=== PATIENT | male | born 1950 | race Caucasian/White ===

== ENCOUNTER 2019-04-06 10:19 | Inpatient (IN) | payer OTHER, SELFPAY ==
[2019-04-06] VITALS (9 sets, daily range): BP systolic 102–146; BP diastolic 71–94; PULSE 77–132; RESP 16–20; TEMP 36.2–37; O2SAT 94–99; BMI 28.9
--- NOTE | ~2019-04-06 | XR_ITS ---
. EXAMINATION: XR pelvis 1-2V DATE: 04/06/2019 11:46 INDICATION: Pelvic pain. Fall. TECHNIQUE: An anteroposterior view of the pelvis was obtained. COMPARISON: Pelvis radiograph 12/26/2014 FINDINGS: Bone alignment is normal. No fracture. There is moderate right hip osteoarthritis and advan loni left hip osteoarthritis. There is mild lower lumbar spondylosis. IMPRESSION: 1. Moderate right hip osteoarthritis and advanced left hip osteoarthritis. Reviewed, dictated and finalized at location A. TYING MACHINE KNOTTER
--- NOTE | ~2019-04-06 | US_ITS ---
EXAMINATION: US carotid duplex BI DATE: 04/08/2019 13:01 INDICATION: Carotid stenosis. Status post fall. TECHNIQUE: Grayscale, color Doppler, and pulsed Doppler images of the cervical carotid arteries were obtained. The degree of vessel stenosis is placed in one of the following categories: normal, <50%, 5 0-69%, >=70% but less than near-occlusion, near-occlusion, or total occlusion. Note that percent sten osis relative to normal distal artery lumen diameter is indirectly measured from velocity measurement s as described by Ishaan, et al. Radiology 2003; 229:340-346. Notes: Normal: Peak systolic velocity <125 centimeters/sec and no plaque <50%. Peak systolic velocity <125 ( EDV <40; ICA/CCA PSV ratio <2.0; used these factors only a tandem lesions or low cardiac output or co ntralateral disease) 50-69 %: PSV 125-230 (EDV 40-100; ratio 2-4) >= 70% but less than near occlusion: PSV greater than 230 (EDV > 100; ratio> 4.0) Near Occlusion: PSV that is variable; markedly narrowed lumen Occlusion: Absent flow on color/spectral Doppler and no lumen on michel scale. COMPARISON: Ultrasound dated 07/12/2017 FINDINGS: RIGHT: The right common carotid artery (CCA) peak systolic velocity (PSV) is 83 cm/s. The right internal car otid artery (ICA) PSV is 151 cm/s. The right ICA end-diastolic velocity (EDV) is 35 cm/s. The right I CA/CCA PSV ratio is 1.8. The external carotid artery (ECA) PSV is 173 cm/s. There is antegrade flow i n the right vertebral artery. LEFT: The left CCA PSV is 126 cm/s. The left ICA PSV is 106 cm/s. The left ICA EDV is 18 cm/s. The left ICA /CCA PSV ratio is 0.8. The ECA PSV is 272 cm/s. There is antegrade flow in the left vertebral artery . IMPRESSION: 1. 50-69% stenosis in the right internal carotid artery by sonographic criteria. 2. Less than 50% stenosis in the left internal carotid artery by sonographic criteria. Reviewed, dictated and finalized at location B. CINAL CHEMIST IMPRESSION: 1. 50-69% stenosis in the right internal carotid artery by sonographic criteria . 2. Less than 50% stenosis in the left internal carotid artery by sonographic cr iteria.
--- NOTE | ~2019-04-06 | CT_ITS ---
EXAMINATION: CT lumbar spine wo con DATE: 04/06/2019 11:36 INDICATION: Low back pain. TECHNIQUE: Computed tomography (CT) of the lumbar spine was performed without intravenous contrast. A utomated exposure control and iterative reconstruction technique were employed. The dose-length produ ct was 1238.32 mGy-cm. COMPARISON: Lumbar spine CT 12/28/2014 FINDINGS: The bladder is severely distended. There is an old healed fracture right 11th rib. There is moderate right hip osteoarthritis and advanced left hip osteoarthritis. There is 11 degrees levoscol iosis of lumbar spine. L5 is a transitional segment. Intervertebral disc heights are normal. The foll owing disc levels are specifically discussed: L1-L2: The disc is bulging. There is moderate bilateral facet joint osteoarthritis. There is mild latesha ateral neural foraminal stenosis. There is mild central canal stenosis. L2-L3: The disc is bulging. There is mild right and moderate left facet joint osteoarthritis. There i s mild bilateral neural foraminal stenosis. There is mild central canal stenosis. L3-L4: The disc is bulging. There is mild bilateral facet joint osteoarthritis. There is moderate latesha ateral neural foraminal stenosis. There is mild central canal stenosis. L4-L5: The disc is bulging. There is severe bilateral facet joint osteoarthritis. There is mild bilat eral neural foraminal stenosis. There is mild central canal stenosis. L5-S1: The disc does not extend beyond the endplate margin. There is no facet joint hypertrophy. Ther e is no neural foraminal stenosis. There is no central canal stenosis. IMPRESSION: 1. No fracture. 2. Moderate lumbar spondylosis. 3. Lumbar levoscoliosis. Reviewed, dictated and finalized at location A. T FARMER
--- NOTE | ~2019-04-06 | CT_ITS ---
EXAMINATION: CT brain wo con DATE: 04/06/2019 11:35 INDICATION: Head injury. TECHNIQUE: Computed tomography (CT) of the head was performed without intravenous contrast. The mA wa s adjusted according to patient size. Iterative reconstruction technique was employed. The dose-lengt h product was 605.33 mGy-cm. COMPARISON: Head CT 11/07/2017 FINDINGS: There is diffuse brain volume loss. There is no intracranial hemorrhage, acute infarction, or abnormal intracranial mass lesion. The ventricles are normal in size. The orbits are normal. There is mild mucosal thickening in the ethmoid sinuses. The mastoid air cells are normal. IMPRESSION: 1. Normal aging brain. Reviewed, dictated and finalized at location A. CTOR LEARNING SERVICES IMPRESSION: 1. Normal aging brain.
--- NOTE | ~2019-04-06 | XR_ITS ---
EXAMINATION: XR knee LT 3V DATE: 04/06/2019 11:45 INDICATION: Left knee pain. Fall. TECHNIQUE: 3 views of left knee were obtained. COMPARISON: Left knee radiographs 10/27/2016 FINDINGS: The knee is flexed on all views. No fracture. Osteopenia is noted. There is mild tricompart mental osteoarthritis. There is a large knee joint effusion. IMPRESSION: 1. Large left knee joint effusion. No fracture identified. 2. Mild left knee osteoarthritis. Reviewed, dictated and finalized at location A. ER MACHINE
--- NOTE | ~2019-04-06 | XR_ITS ---
EXAMINATION: XR knee RT 3V DATE: 04/06/2019 11:45 INDICATION: Right knee pain and swelling. Fall. TECHNIQUE: 3 views of right knee were obtained. COMPARISON: Right knee radiographs 10/27/2016 FINDINGS: Bone alignment is normal. No fracture. There is moderate osteoarthritis of medial compartme nt and mild osteoarthritis of lateral and patellofemoral compartments. No knee joint effusion. IMPRESSION: 1. Moderate right knee osteoarthritis. Reviewed, dictated and finalized at location A. CELL SYSTEMS ENGINEER
--- NOTE | ~2019-04-06 | CT_ITS ---
EXAMINATION: CT cervical spine wo con DATE: 04/06/2019 11:35 INDICATION: Head injury. TECHNIQUE: Computed tomography (CT) of the cervical spine was performed without intravenous contrast. Automated exposure control and iterative reconstruction technique were employed. The dose-length pro duct was 461.97 mGy-cm. COMPARISON: Cervical spine CT 07/12/2017 FINDINGS: There is mild emphysema. There is 8 degrees levocurvature of cervical spine. Vertebral body heights are normal. There is severely decreased disc height at C4-C5 and mildly decreased disc heigh t at C5-C6. The following disc levels are specifically discussed: C2-C3: There is mild bilateral uncovertebral joint osteoarthritis. There is mild bilateral facet join t osteoarthritis. There is no neural foraminal stenosis. There is no central canal stenosis. C3-C4: There is mild bilateral uncovertebral joint osteoarthritis. There is mild bilateral facet join t osteoarthritis. There is no neural foraminal stenosis. There is no central canal stenosis. C4-C5: There is severe right and mild left uncovertebral joint osteoarthritis. There is mild bilatera l facet joint osteoarthritis. There is mild right neural foraminal stenosis. There is mild central ca nal stenosis. C5-C6: There is severe right and mild left uncovertebral joint osteoarthritis. There is mild right fa cet joint osteoarthritis. There is mild right neural foraminal stenosis. There is no central canal st enosis. C6-C7: There is no uncovertebral joint osteoarthritis. There is mild left facet joint osteoarthritis. There is no neural foraminal stenosis. There is no central canal stenosis. C7-T1: There is no uncovertebral joint osteoarthritis. There is mild right and moderate left facet jovanni int osteoarthritis. There is no neural foraminal stenosis. There is no central canal stenosis. IMPRESSION: 1. No fracture. 2. Severe cervical spondylosis. Reviewed, dictated and finalized at location A. WAY RADIO TECHNICIAN
--- NOTE | ~2019-04-06 | XR_ITS ---
EXAMINATION: XR chest 2V DATE: 04/06/2019 13:03 INDICATION: Cough. Weakness. TECHNIQUE: Frontal and lateral views of the chest were obtained. COMPARISON: Chest 2 views 11/15/2017 FINDINGS: There is no pneumonia, pleural effusion, or pneumothorax. Cardiomegaly is noted. IMPRESSION: 1. Cardiomegaly. Reviewed, dictated and finalized at location A. EM ARCHIVE ANALYST IMPRESSION: 1. Cardiomegaly.
--- NOTE | 2019-04-06 11:07 | ECG_ITS ---
Measurements Intervals [place] Rate: 109 P: KS: 0 QRS: -19 QRSD: 105 T: 90 QT: 356 QTc: 480 Interpretive Statements ATRIAL FIBRILLATION WITH RAPID VENTRICULAR RESPONSE VENTRICULAR PREMATURE COMPLEXES DELAYED PRECORDIAL R/S TRANSITION BORDERLINE ST-T WAVE ABNORMALITY- LATERAL LEADS BASELINE ARTIFACT- II, III, AVR, AVL, AVF ABNORMAL ECG Electronically Signed On 04-06-2019 12:06:15 CAKE FROSTER by Madhav Lanier D.O.
--- NOTE | 2019-04-06 11:36 | ED.FALL ---
HPI - Fall General Chief Complaint: Fall Stated Complaint: increased weakness/ lethargy Time Seen by Provider: 04/06/19 11:06 Source: patient and family Mode of arrival: ambulatory Limitations: no limitations History of Present Illness HPI Narrative: Patient is a 68-year-old male who presents per private vehicle for evaluation of injuries after falling out of his bed in the early hours of the morning was laying on the ground could not get up family was finally able to get him up and bring some into the emergency department complaining of hand pain knee pain low back pain and head pain from the fall also has been having generalized weakness over the recent past with similar occurrences in the past. Patient denies any fever chills nausea or vomiting or URI symptoms . On arrival patient in the room in no distress. Symptoms are worse with activity and movement. Patient denies syncope or loss of consciousness Related Data Home Medications Medication Instructions Recorded Confirmed apixaban 5 mg tablet 5 mg PO BID 03/13/19 diltiazem HCl 240 mg capsule,24 240 mg PO DAILY 03/13/19 hr,extended release duloxetine 30 mg capsule,delayed 30 mg PO DAILY 03/13/19 release magnesium oxide 400 mg PO DAILY 03/13/19 potassium chloride 20 mEq 20 meq PO BID 03/13/19 tablet,extended release(part/cryst) Allergies Allergy/AdvReac Type Severity Reaction Status Date / Time No Known Allergies Allergy Verified 04/06/19 10:34 Review of Systems Review of Systems: All systems reviewed & are unremarkable except as noted in HPI and below PMFSH Past Medical History Medical History Essential (primary) hypertension History of tobacco abuse Overweight (08/21/15) Paroxysmal atrial fibrillation Family History Family History Mother Family history of malignant neoplasm Patient's mother is Father Patient's father is Social History Social History Smoking status: Current every day smoker Alcohol intake: current Gender identity (if verbalized by the patient): Male Exam Narrative: Exam Narrative: GENERAL: Chronically ill l-appearing, well-nourished, and in no acute distress. HEAD: Normocephalic, atraumatic. EYES: PERRLA and EOMI. ENT: Nares clear, no rhinorrhea or epistaxis. Mucous membranes moist. Oropharynx without tonsillar hypertrophy exudate or other lesions. NECK: Supple. No adenopathy or masses. No carotid bruits or JVD CHEST: Clear to auscultation. No respiratory distress. No wheezes rales or rhonchi HEART: Irregularly irregular rate and rhythm. No murmur heard. Normal peripheral pulses. ABDOMEN: Soft, mild tenderness of the abdomen, nondistended EXTREMITIES: Normal range of motion. No edema. Tenderness of the cervical thoracic and lumbar spine. Pelvis palpated and tenderness of the left hip., Tenderness of the bilateral hands no deformity. Tenderness of the bilateral anterior knees with abrasions noted SKIN: Warm, dry, no rash. NEURO: No focal deficits. Alert and oriented x3. Cranial nerves II through XII grossly intact. Neurovascularly intact PSYCH: Normal mood and affect. Course Course Emergency Course: Patient in the room at this time aware of case findings treatment plan and diagnosis agreeing to come into the hospital for his atrial fibrillation and generalized weakness Consultations Consultation #1: Discussed case with hospitalist who is agreed to accept the patient Vital Signs Vital signs: Vital Signs Temperature 97.2 F L 04/06/19 10:26 Pulse Rate 127 H 04/06/19 10:26 Respiratory Rate 20 04/06/19 10:26 Blood Pressure 112/94 H 04/06/19 10:26 Pulse Oximetry 94 04/06/19 10:26 Temperature 97.2 F L 04/06/19 10:26 Pulse Rate 132 H 04/06/19 12:49 Respiratory Rate 16
[2019-04-06 12:24] LABS: Basophils Percent Auto 0.2 % (0.2-1.2); Hematocrit 44.6 % (42.0-52.0); Hemoglobin 14.9 g/dL (14.0-18.0); Immature Granulocyte Absolute 0.13 K/mm3 (0.00-0.031); Immature Granulocyte Percent A 0.7 % (0-0.5); Lymphocytes Absolute Auto 0.87 K/mm3 (0.9-3.2); Lymphocytes Percent Auto 4.6 % (18.3-44.2); Mean Corpuscular HGB Conc 33.4 g/dl (32-36); Mean Corpuscular Hemoglobin 28.5 pg (26-34); Mean Corpuscular Volume 85.4 fl (80-100); Mean Platelet Volume 10.4 fl (7.4-10.4); Monocytes Absolute Auto 1.5 K/mm3 (0.1-0.6); Monocytes Percent Auto 8.1 % (2.6-8.5); Neutrophils Absolute Auto 16.4 K/mm3 (1.3-6.7); Neutrophils Percent Auto 86.4 % (45.5-73.1); Platelet Count Result 347 k/mm3 (150-375); Red Blood Count 5.22 M/mm3 (4.6-6.20); Red Cell Distribution Width 13.4 % (11.5-14.5)
[2019-04-06 12:36] LABS: Alanine Aminotransferase 29 U/L (4-50); Albumin Level 3.9 g/dL (3.5-5.1); Alkaline Phosphatase 193 U/L (38-126); Aspartate Amino Transferase 52 U/L (17-59); Bilirubin,Total 2.3 mg/dL (0.2-1.3); Blood Urea Nitrogen 17 mg/dL (9-20); Calcium 9.5 mg/dL (8.4-10.2); Carbon Dioxide 25 mmol/L (22-30); Chloride 94 mmol/L (98-107); Creatine Kinase 349 U/L (55-170); Estimated CRCL calculation 90 ml/min; Estimated Glomerular Filt Rate > 60; Glucose 149 mg/dL (75-110); Potassium 3.6 mmol/L (3.4-5.0); Sodium 135 mmol/L (137-145)
[2019-04-06 12:46] LABS: INR 1.2; Prothrombin Time 15.3 Seconds (11.1-14.7)
[2019-04-06 12:48] LABS: NT Pro B Type Natriuretic Pept 5440 PG/ML (5-100); Troponin I 0.013 ng/mL (0.000-0.034)
[2019-04-06] MEDS: MORPHINE SULFATE 4 MG/ML INJ IV PUSH (13:27)
[2019-04-06 14:35] LABS: Add Urine Microscopic? YES; Appearance Urine Cloudy (Clear); Bacteria Urine Trace /hpf; Bilirubin Urine Negative (Negative); Blood Urine 2+ (Negative); Color Urine Amber (Yellow); Glucose Urine UA Negative (Negative); Ketones Urine Negative (Negative); Leukocyte Esterase Ur 3+ LEU/UL (Negative); Nitrate Urine Negative (Negative); Protein Urine 2+ mg/dL (Negative); RBC Urine 51-75 /hpf (0-2); Specific Grav Ur 1.015 (1.001-1.035); Squamous Epithelial Cell Urine Rare /hpf (Few); WBC Urine >75 /hpf
--- NOTE | 2019-04-06 17:17 | ADMGEN ---
This patient, Sonny Salas, was admitted to IMU Room 212-01 at 1445. Patient/family oriented to hospital policies and general routines including ID bracelet, bed and alarms, visiting hours, pain management, procedures, bathroom and other care routines, personal items, smoking policy, room service/diet, and visiting hours. Valuables list has been completed. Information on how to activate the Rapid Response Team has been discussed. Patient/Family are encouraged to report perceived risks to care and to ask questions if they do not understand what they are told or what they should do.
--- NOTE | 2019-04-06 17:29 | PM.IMHP ---
H&P: HPI History of Present Illness Chief complaint: a fib with rvr Narrative: Sonny Salas is a 68 year old male who came to the hospital via private vehicle. His Kelly drove him here. The patient slid out of bed as 1 his said. However the patient said that he had stood up to get out of bed and slipped and fell on the floor. The stated this is not the 1st time this has occurred. The patient has some neuropathy to his feet and severe osteoarthritis. He chronically has avascular necrosis to his hip. However no surgeon will be able to perform surgery on him because he is too high wrist. The patient has been very weak and having difficulty moving around. His stated that he was also getting confused. The patient has abrasions to his elbows and his legs. He was not able to get up off the floor. Finally another family member came over to help assist with getting the patient off the floor. The states that he has been falling frequently and having frequent UTIs. He takes Macrobid routinely. Patient was found to be in AFib RVR. On a Cardizem drip. His heart rate is now in the lower 100s. Date of service 04/06/2019 influenza screening was negative. Review of Systems Review of Systems: Narrative: No fever no chills but he has body aches. He is complaining of having discomfort to his legs. Severe neuropathy All systems reviewed & are unremarkable except as noted in HPI and below Constitutional: Constitutional: Reports as per HPI and Reports no additional constitutional complaints Eyes: Eyes: Reports as per HPI and Reports no additional eye complaints ENT: Reports system reviewed and no additional complaints, except as documented and Reports Normal hearing present Cardiovascular: Cardiovascular: Reports no additional cardiovascular complaints Respiratory: Respiratory: Reports no additional respiratory complaints and Reports no additional respiratory complaints Gastrointestinal: Gastrointestinal: Reports as per HPI and Reports no additional gastrointestinal complaints Musculoskeletal: Musculoskeletal: Reports no additional musculoskeletal complaints Comments: Severe osteoarthritis to his hips knees and feet. Severe pain to left knee Integumentary/Breasts: Skin/Breast: Reports system reviewed and no additional complaints, except as docu and Reports as per HPI Neurologic: Reports system reviewed and no additional complaints, except as documented, Reports as per HPI and Reports Normal hearing present Psychiatric: Psychiatric: Reports no additional psychiatric complaints and Reports as per HPI Endocrine: Endocrine: Reports no additional endocrine complaints Hematologic/Lymphatic: Hematologic/Lymphatic: Reports no additional hematologic/lymphatic complaints Allergic/Immunologic: Allergic/Immunologic: Reports no additional allergic/immunologic complaints [facility] Past Medical History Medical History (Updated 04/06/19 @ 18:14 by Shelby Rush NP) CVD (cardiovascular disease) Five cardiac stents Essential (primary) hypertension History of multiple cerebrovascular accidents (CVAs) History of tobacco abuse Kidney stones Liver abscess Drained Overweight (08/21/15) Paroxysmal atrial fibrillation PVD (peripheral vascular disease) Surgical History Surgical History (Updated 04/06/19 @ 17:46 by Shelby Rush NP) H/O cataract extraction H/O heart artery stent 5 stents History of appendectomy Hx of cholecystectomy Family History Family History Mother Family history of malignant neoplasm Patient's mother is Father Patient's father is Social History Social History (Updated 04/06/19 @ 18:00 by Shelby Rush NP) Social History: This patient lives with his James who he appoints as his durable power contract attorney. He has no biological children but he is 2 to stepchildren. 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
[2019-04-06] MEDS: POTASSIUM CHLORIDE 20 MEQ TABLET.ER PO (19:03)
[2019-04-06] MEDS: METOPROLOL TARTRATE 25 MG TABLET PO (19:03)
[2019-04-06] MEDS: MAGNESIUM OXIDE 400 MG TABLET PO (19:03)
[2019-04-06] MEDS: FUROSEMIDE 80 MG TABLET PO (19:03)
[2019-04-06] MEDS: DULOXETINE HCL 30 MG CAPSULE.DR PO (19:04)
[2019-04-06] MEDS: ATORVASTATIN 40 MG TABLET PO (19:04)
[2019-04-06] MEDS: ASPIRIN 81 MG ENTERIC TABLET PO (19:04)
[2019-04-06] MEDS: APIXABAN 5 MG TABLET PO (19:04)
[2019-04-06] MEDS: GABAPENTIN 100 MG CAPSULE PO (19:04)
[2019-04-07] VITALS (13 sets, daily range): BP systolic 136–154; BP diastolic 70–83; PULSE 74–111; RESP 16–20; TEMP 36.7–37.1; O2SAT 93–97
[2019-04-07 05:13] LABS: Basophils Percent Auto 0.2 % (0.2-1.2); Eosinophils Absolute Auto 0.1 K/mm3 (0-0.3); Eosinophils Percent Auto 0.5 % (0-4.4); Hematocrit 41.7 % (42.0-52.0); Hemoglobin 13.7 g/dL (14.0-18.0); Immature Granulocyte Absolute 0.05 K/mm3 (0.00-0.031); Immature Granulocyte Percent A 0.4 % (0-0.5); Lymphocytes Absolute Auto 1.33 K/mm3 (0.9-3.2); Lymphocytes Percent Auto 10.5 % (18.3-44.2); Mean Corpuscular HGB Conc 32.9 g/dl (32-36); Mean Corpuscular Hemoglobin 28.6 pg (26-34); Mean Corpuscular Volume 87.1 fl (80-100); Mean Platelet Volume 10.4 fl (7.4-10.4); Monocytes Absolute Auto 1.4 K/mm3 (0.1-0.6); Monocytes Percent Auto 10.7 % (2.6-8.5); Neutrophils Absolute Auto 9.8 K/mm3 (1.3-6.7); Neutrophils Percent Auto 77.7 % (45.5-73.1); Platelet Count Result 327 k/mm3 (150-375); Red Blood Count 4.79 M/mm3 (4.6-6.20); Red Cell Distribution Width 13.5 % (11.5-14.5); White Blood Count 12.6 K/mm3 (4.5-10.0)
[2019-04-07 05:34] LABS: Alanine Aminotransferase 30 U/L (4-50); Albumin Level 3.6 g/dL (3.5-5.1); Alkaline Phosphatase 163 U/L (38-126); Aspartate Amino Transferase 52 U/L (17-59); Bilirubin,Total 1.2 mg/dL (0.2-1.3); Blood Urea Nitrogen 16 mg/dL (9-20); Carbon Dioxide 26 mmol/L (22-30); Chloride 97 mmol/L (98-107); Estimated CRCL calculation 79 ml/min; Estimated Glomerular Filt Rate > 60; Glucose 112 mg/dL (75-110); Magnesium 2.1 mg/dL (1.6-2.3); Potassium 3.6 mmol/L (3.4-5.0); Sodium 137 mmol/L (137-145); Uric Acid 7.2 mg/dL (3.5-8.5)
[2019-04-07 06:30] LABS: Thyroid Stimulating Hormone Reflex 0.586 uIU/mL (0.465-4.68)
[2019-04-07] MEDS: DULOXETINE HCL 30 MG CAPSULE.DR PO (12:16)
[2019-04-07] MEDS: ASPIRIN 81 MG ENTERIC TABLET PO (12:16)
[2019-04-07] MEDS: APIXABAN 5 MG TABLET PO ×2 (12:16→18:04)
[2019-04-07] MEDS: GABAPENTIN 100 MG CAPSULE PO ×2 (12:16→18:04)
[2019-04-07] MEDS: NITROFURANTOIN MACROCRYSTALS 50 MG CAP PO (12:16)
[2019-04-07] MEDS: FUROSEMIDE 80 MG TABLET PO (12:17)
[2019-04-07] MEDS: ATORVASTATIN 40 MG TABLET PO (12:17)
[2019-04-07] MEDS: MAGNESIUM OXIDE 400 MG TABLET PO (12:17)
[2019-04-07] MEDS: METOPROLOL TARTRATE 25 MG TABLET PO ×2 (12:17→18:04)
[2019-04-07] MEDS: FAMOTIDINE 20 MG/2 ML VIAL IV PUSH ×2 (12:18→20:28)
[2019-04-07] MEDS: POTASSIUM CHLORIDE 20 MEQ TABLET.ER PO ×2 (12:18→18:04)
[2019-04-07] MEDS: TOLNAFTATE 1% POWDER 45 GM BTL 1 APPLIC TOPICAL ×2 (12:18→20:32)
--- NOTE | 2019-04-07 16:20 | PM.IMPN ---
Subjective Date/time seen: 04/07/19 16:20 Interval history: Josue is a 68 year old male who came to the hospital via private vehicle. His Kelly drove him here. The patient slid out of bed as 1 his said. However the patient said that he had stood up to get out of bed and slipped and fell on the floor. Pt has bilateral knee effusions left worse than right. Pt has had neuropathy, finds it difficult to walk. And falls easily needs rehab to help him walk. Review of Systems Review of Systems: All systems reviewed & are unremarkable except as noted in HPI and below Integumentary/Breasts: Comments: imbalance , swollen knees, numbness in feet Exam Const: General: cooperative, healthy appearing, comfortable, no acute distress, well developed, alert, awake and Physically active Nutritional Appearance: average body habitus, well nourished and overweight Orientation/consciousness: oriented to person, oriented to place, oriented to time and patient oriented x3 Limitations: no limitations Chest: Chest palpation & inspection: normal inspection of the chest Resp: Effort & Inspection: normal respiratory effort Auscultation: clear to auscultation bilaterally Percussion: percussion normal Cardio: Palpation: normal PMI Rate: regular rate Rhythm: regular rhythm Heart sounds: S1 normal heart sound present and S2 normal heart sound present Peripheral pulses: Peripheral pulses 2+ throughout Other: The patient goes in and out of atrial fibrillation. Weak pedal pulses bilaterally. Back/Spine/Pelvis: Back: no CVA tenderness Cervical Spine: cervical ROM normal Thoracic/Lumbar Spine: thoracic and lumbar spine normal to inspection Pelvis: no pain with anterior-posterior compression Skin: General skin exam: normal color Lesions: no lesions Rashes: no rashes Trauma: no lacerations or abrasions Wounds: no wounds Hair: normal Nails: normal Neuro: General: oriented to person, oriented to place, oriented to time and patient oriented x3 Cranial nerves: Yes Equal, round and reactive pupils present and Yes Normal hearing present Cognition (Neuro): normal cognition Speech: normal speech Gait exam (Neuro): Normal gait present Motor exam (neuro): Other motor observations present (Generalized weakness) Sensory Exam: other (Very sensitive to lower extremities. He has neuropathy) Extrem: General: normal to inspection, full ROM and other (Weak pedal pulses bilaterally. Multiple scratches to his lower extremity.) Right upper extremity: normal to inspection and shoulder/upper arm Left upper extremity: normal to inspection and shoulder/upper arm Other: Large swollen knees arthritc with effusion Numbness of feet Toe nails and feet unkempt Psych: Appearance: grossly normal Mental Status: mental status grossly normal Speech and movement: Normal speech and movement present Affect: normal affect Attitude: cooperative Thought process: Normal thought process present Insight: Fair insight present (Psych) Judgement: Fair judgement present (Psych) Other: Patient gets confused at times but is answer questions for me at this time. Objective Data Vital Signs Vital Signs: Vital Signs - 24 hr 04/06/19 19:03 04/06/19 19:35 04/06/19 20:00 Temperature 36.6 C Pulse Rate 106 H 98 98 Respiratory Rate 18 Blood Pressure 146/71 H Pulse Oximetry 98 04/06/19 22:00 04/06/19 23:29 04/07/19 00:00 Temperature 37.0 C Pulse Rate 89 77 99 Respiratory Rate 20 Blood Pressure 140/77 Pulse Oximetry 94 04/07/19 02:00 04/07/19 04:00 04/07/19 06:00 Temperature 36.7 C Pulse Rate 98 93 106 H Respiratory Rate 18 Blood Pressure 150/83 H Pulse Oximetry 97 04/07/19 08:00 04/07/19 10:00 04/07/19 12:00 Temperature 36.9 C Pulse Rate 111 H 92 91 Respiratory Rate 20 Blood Pressure 154/79 H Pulse Oximetry 97 04/07/19 12:17 Temperature Pulse Rate 95 Respiratory Rate Blood Pressure Pulse Oximetry Intake/Outpu
--- NOTE | 2019-04-07 19:48 | PC.NURSE ---
report given to Cj ARMENTA, pt transferred with belongings to [facility] at 1944.
[2019-04-08] VITALS (11 sets, daily range): BP systolic 124–132; BP diastolic 53–62; PULSE 68–80; RESP 18–20; TEMP 36.6–37.3; O2SAT 96–98
[2019-04-08 06:38] LABS: Hematocrit 39.5 % (42.0-52.0); Hemoglobin 12.8 g/dL (14.0-18.0); Mean Corpuscular HGB Conc 32.4 g/dl (32-36); Mean Corpuscular Hemoglobin 28.6 pg (26-34); Mean Corpuscular Volume 88.2 fl (80-100); Mean Platelet Volume 10.5 fl (7.4-10.4); Platelet Count Result 316 k/mm3 (150-375); Red Blood Count 4.48 M/mm3 (4.6-6.20); Red Cell Distribution Width 13.5 % (11.5-14.5); White Blood Count 9.8 K/mm3 (4.5-10.0)
[2019-04-08 06:48] LABS: Blood Urea Nitrogen 20 mg/dL (9-20); Calcium 8.9 mg/dL (8.4-10.2); Carbon Dioxide 26 mmol/L (22-30); Chloride 96 mmol/L (98-107); Estimated CRCL calculation 64 ml/min; Estimated Glomerular Filt Rate > 60; Glucose 110 mg/dL (75-110); Potassium 3.9 mmol/L (3.4-5.0); Sodium 135 mmol/L (137-145)
[2019-04-08] MEDS: APIXABAN 5 MG TABLET PO ×2 (09:07→16:59)
[2019-04-08] MEDS: ATORVASTATIN 40 MG TABLET PO (09:07)
[2019-04-08] MEDS: ASPIRIN 81 MG ENTERIC TABLET PO (09:07)
[2019-04-08] MEDS: GABAPENTIN 100 MG CAPSULE PO ×3 (09:08→16:58)
[2019-04-08] MEDS: METOPROLOL TARTRATE 25 MG TABLET PO ×2 (09:08→16:58)
[2019-04-08] MEDS: NITROFURANTOIN MACROCRYSTALS 50 MG CAP PO (09:08)
[2019-04-08] MEDS: DULOXETINE HCL 30 MG CAPSULE.DR PO (09:08)
[2019-04-08] MEDS: FUROSEMIDE 80 MG TABLET PO (09:08)
[2019-04-08] MEDS: MAGNESIUM OXIDE 400 MG TABLET PO (09:08)
[2019-04-08] MEDS: FAMOTIDINE 20 MG/2 ML VIAL IV PUSH ×2 (09:08→20:16)
[2019-04-08] MEDS: POTASSIUM CHLORIDE 20 MEQ TABLET.ER PO ×2 (09:09→16:59)
[2019-04-08] MEDS: TOLNAFTATE 1% POWDER 45 GM BTL 1 APPLIC TOPICAL ×2 (09:13→20:18)
--- NOTE | 2019-04-08 15:08 | PM.IMPN ---
Progress Note: A&P Assessment and Plan (1) Atrial fibrillation with rapid ventricular response: Code(s): I48.91 - Unspecified atrial fibrillation Status: Acute Assessment and Plan: Patient had not had his home medications yet this morning. Will resume his metoprolol and his Cardizem orally he is also on apixaban. We can take him off of the Cardizem drip once we start him on oral medications. (2) UTI (urinary tract infection): Code(s): N39.0 - Urinary tract infection, site not specified Status: Acute Assessment and Plan: Patient has been on Macrobid at home. But I believe this is probably more prophylactic since he has had lots of urinary tract infections. Urine cultures are pending. This may be the cause of some of his confusion and weakness. The patient has had multiple falls. He fell out of bed on 04/05 and was on the floor for overnight. We will start Rocephin. Josue is a 68 year old male who came to the hospital via private vehicle. His Kelly drove him here. The patient slid out of bed as 1 his said. However the patient said that he had stood up to get out of bed and slipped and fell on the floor. Pt has bilateral knee effusions left worse than right. Pt has had neuropathy, finds it difficult to walk. And falls easily needs rehab to help him walk. Patient with history of moderate systolic dysfunction with a EF of 35% and carotid endarterectomy will do the cardiac echo and carotid ultrasound to further evaluate his fall. The patient denies any complaint of chest pain shortness of breath dizziness, fever or chills, his main concern is a pain in his bilateral knees he would like to bilateral knee arthroplasty patient be seen by orthopedic surgeon and further recommendation to follow (3) Chronic diastolic (congestive) heart failure: Code(s): I50.32 - Chronic diastolic (congestive) heart failure Status: Chronic Assessment and Plan: He has mixed with the EF of approximately 40-45%. We can resume his furosemide and his metoprolol. Will do the cardiac echo (4) Essential (primary) hypertension: Code(s): I10 - Essential (primary) hypertension Status: Chronic Assessment and Plan: Patient is on metoprolol and Lasix continue with this please (5) Depression: Code(s): F32.9 - Major depressive disorder, single episode, unspecified Status: Chronic Assessment and Plan: Continue with duloxetine (6) Chronic kidney disease, stage 3 (moderate): Code(s): N18.3 - Chronic kidney disease, stage 3 (moderate) Status: Chronic Assessment and Plan: Much improved and BUN creatinine are normal. (7) Hyperlipidemia, unspecified: Code(s): E78.5 - Hyperlipidemia, unspecified Status: Chronic Assessment and Plan: Continue with atorvastatin however he is weak and this may be causing some of his weakness. However the patient has had multiple CVAs any has coronary artery disease we would outweigh the risk and the benefits. (8) Neuropathy: Code(s): G62.9 - Polyneuropathy, unspecified Status: Acute Assessment and Plan: Patient is on duloxetine and I added gabapentin at low dose (9) Chronic pain of both knees: Code(s): M25.561 - Pain in right knee; M25.562 - Pain in left knee; G89.29 - Other chronic pain Status: Acute Assessment and Plan: Patient with bilateral knee pain patient will benefit from the knee arthroplasty patient be seen by orthopedic surgeon and further recommendation to follow Subjective Date/time seen: 04/08/19 15:08 Interval history: Josue is a 68 year old male who came to the hospital via private vehicle. His Kelly drove him here. The patient slid out of bed as 1 his said. However the patient said that he had stood up to get out of bed and slipped and fell on the floor. Pt has bilateral knee effusions left worse than right. Pt has had neuropathy, finds
[2019-04-09] VITALS (9 sets, daily range): BP systolic 135–147; BP diastolic 78–93; PULSE 70–100; RESP 16–18; TEMP 36.4–36.7; O2SAT 94–98
--- NOTE | 2019-04-09 | ECHO_ITS ---
Patient Info Name: Sonny Salas Age: 68 years : 1950 Gender: Male Ht: 70 in Wt: 207 lbs BSA: 2.18 m2 HR: 64 bpm BP: 147 / 93 mmHg Heart Rhythm: Atrial Fibrillation Technical Quality: Good Exam Date: 04/09/2019 10:36 AM Exam Location: [facility] Patient Status: Inpatient Admit Date: 04/06/2019 Staff Ordering Physician: Aminta Arvizu MD Tin Assorter: Omar Magana RDCS Attending Provider: Francy Velazquez MD Exam Type: CA echo dop color flow w con Study Info Indications I48.1 - Persistent atrial fibrillation Complete two-dimensional, color flow and Doppler transthoracic echocardiogram is performed with contrast to opacify the left ventrical and to improve the deliniation of the left ventrical endocarial boarders. Contrast/Agitated Saline Contrast/Ag. Saline: Definity Amount: 2.00 ml Administered By: Derrick Samuels RN Existing IV Access: Yes History/Risk Factors Atrial fibrillation; CHF; HTN, EtOH abuse, CKD 3. Summary 1. Severe left ventricular enlargement, 7.5 cm. Severe global hypokinesis with akinesis of the apex, apical septal and inferior apical areas. Grade 2 diastolic dysfunction Is present. The measured ejection fraction is 33%, visually 25-30%. 2. Right ventricular chamber dimension is mildly enlarged. 3. Left atrial chamber dimension is severely enlarged. 4. Right atrial chamber dimension is mildly enlarged. 5. There is mild mitral valve regurgitation. 6. Mild pulmonary hypertension, estimated pulmonary arterial systolic pressure is 42 mmHg. 7. Technically difficult study. Definity echo contrast used. 8. Atrial fibrillation with PVCs. 9. Compared to the echo of July 2017, there appears to be progressive left ventricular enlargement and hypokinesis. Left Ventricle Left ventricular chamber dimension is severely enlarged. Left ventricular systolic function is severely reduced, estimated at Empty. There is no increased left ventricular wall thickness. Left ventricular septal wall motion is normal. The left ventricular diastolic function is grade II diastolic dysfunction. Severe left ventricular enlargement, 7.5 cm. Severe global hypokinesis with akinesis of the apex, apical septal and inferior apical areas. Grade 2 diastolic dysfunction Is present. The measured ejection fraction is 33%, visually 25-30%. Right Ventricle Right ventricular chamber dimension is mildly enlarged. Right ventricular systolic function is normal. Left Atria Left atrial chamber dimension is severely enlarged. Right Atria Right atrial chamber dimension is mildly enlarged. Aortic Valve The aortic valve is trileaflet. There is mild aortic valve sclerosis. There is no aortic valve stenosis. There is no aortic valve regurgitation. Pulmonic Valve The pulmonic valve is normal. There is no pulmonic valve stenosis. There is trace pulmonic regurgitation. Mitral Valve The mitral valve has normal leaflets. There is no mitral valve stenosis. There is mild mitral valve regurgitation. Tricuspid Valve The tricuspid valve leaflets are normal. There is no significant tricuspid valve stenosis. There is trace tricuspid valve regurgitation. Mild pulmonary hypertension, estimated pulmonary arterial systolic pressure is 42 mmHg. Pericardium/Pleural The pericardium appears normal. There is no pericardial effusion. Inferior Vena Cava Normal inferior vena cava with >50% collapse u
[2019-04-09 07:00] LABS: Blood Urea Nitrogen 18 mg/dL (9-20); Calcium 8.7 mg/dL (8.4-10.2); Carbon Dioxide 27 mmol/L (22-30); Chloride 100 mmol/L (98-107); Estimated CRCL calculation 79 ml/min; Estimated Glomerular Filt Rate > 60; Glucose 99 mg/dL (75-110); Potassium 3.9 mmol/L (3.4-5.0); Sodium 136 mmol/L (137-145)
[2019-04-09] MEDS: MAGNESIUM OXIDE 400 MG TABLET PO (08:27)
[2019-04-09] MEDS: GABAPENTIN 100 MG CAPSULE PO ×2 (08:27→18:02)
[2019-04-09] MEDS: METOPROLOL TARTRATE 25 MG TABLET PO ×2 (08:27→18:02)
[2019-04-09] MEDS: ASPIRIN 81 MG ENTERIC TABLET PO (08:27)
[2019-04-09] MEDS: ATORVASTATIN 40 MG TABLET PO (08:27)
[2019-04-09] MEDS: DULOXETINE HCL 30 MG CAPSULE.DR PO (08:27)
[2019-04-09] MEDS: FUROSEMIDE 80 MG TABLET PO (08:27)
[2019-04-09] MEDS: APIXABAN 5 MG TABLET PO ×2 (08:27→18:02)
[2019-04-09] MEDS: POTASSIUM CHLORIDE 20 MEQ TABLET.ER PO (08:28)
[2019-04-09] MEDS: NITROFURANTOIN MACROCRYSTALS 50 MG CAP PO (08:28)
[2019-04-09] MEDS: FAMOTIDINE 20 MG/2 ML VIAL IV PUSH (08:28)
[2019-04-09] MEDS: TOLNAFTATE 1% POWDER 45 GM BTL 1 APPLIC TOPICAL ×2 (10:00→20:21)
[2019-04-09] MEDS: PERFLUTREN LIPID MICROSPHERES 1.5 ML VIAL DILUTED TO 10 ML TOTAL VOLUME IV PUSH (11:09)
--- NOTE | 2019-04-09 17:32 | PM.IMPN ---
Progress Note: A&P Assessment and Plan (1) Atrial fibrillation with rapid ventricular response: Code(s): I48.91 - Unspecified atrial fibrillation Status: Acute Assessment and Plan: Patient had not had his home medications yet this morning. Will resume his metoprolol and his Cardizem orally he is also on apixaban. We can take him off of the Cardizem drip once we start him on oral medications. (2) UTI (urinary tract infection): Code(s): N39.0 - Urinary tract infection, site not specified Status: Acute Assessment and Plan: Josue is a 68 year old male who came to the hospital via private vehicle. His Kelly drove him here. The patient slid out of bed as 1 his said. However the patient said that he had stood up to get out of bed and slipped and fell on the floor. Pt has bilateral knee effusions left worse than right. Pt has had neuropathy, finds it difficult to walk. And falls easily needs rehab to help him walk. Patient with history of moderate systolic dysfunction with a EF of 35% and carotid endarterectomy will do the cardiac echo and carotid ultrasound to further evaluate his fall. The patient denies any complaint of chest pain shortness of breath dizziness, fever or chills, his main concern is a pain in his bilateral knees he would like to bilateral knee arthroplasty orthopedic surgeon is recommending conservative management before surgery, today patient participating with physical therapy, cardiac echo is pending patient is clinically stable, awaiting senior care placement, urine culture did not show significant bacterial growth will stop antibiotics (3) Chronic diastolic (congestive) heart failure: Code(s): I50.32 - Chronic diastolic (congestive) heart failure Status: Chronic Assessment and Plan: He has mixed with the EF of approximately 40-45%. We can resume his furosemide and his metoprolol. Will do the cardiac echo, pending (4) Essential (primary) hypertension: Code(s): I10 - Essential (primary) hypertension Status: Chronic Assessment and Plan: Patient is on metoprolol and Lasix continue with this please (5) Depression: Code(s): F32.9 - Major depressive disorder, single episode, unspecified Status: Chronic Assessment and Plan: Continue with duloxetine (6) Chronic kidney disease, stage 3 (moderate): Code(s): N18.3 - Chronic kidney disease, stage 3 (moderate) Status: Chronic Assessment and Plan: Much improved and BUN creatinine are normal. (7) Hyperlipidemia, unspecified: Code(s): E78.5 - Hyperlipidemia, unspecified Status: Chronic Assessment and Plan: Continue with atorvastatin however he is weak and this may be causing some of his weakness. However the patient has had multiple CVAs any has coronary artery disease we would outweigh the risk and the benefits. (8) Neuropathy: Code(s): G62.9 - Polyneuropathy, unspecified Status: Acute Assessment and Plan: Patient is on duloxetine and added gabapentin at low dose (9) Chronic pain of both knees: Code(s): M25.561 - Pain in right knee; M25.562 - Pain in left knee; G89.29 - Other chronic pain Status: Acute Assessment and Plan: Patient with bilateral knee pain patient will benefit from the knee arthroplasty orthopedic surgeon is recommending conservative management before surgery Subjective Date/time seen: 04/09/19 17:32 Interval history: Josue is a 68 year old male who came to the hospital via private vehicle. His Kelly drove him here. The patient slid out of bed as 1 his said. However the patient said that he had stood up to get out of bed and slipped and fell on the floor. Pt has bilateral knee effusions left worse than right. Pt has had neuropathy, finds it difficult to walk. And falls easily needs rehab to help him walk. Patient with history of moderate systolic dysfunction with a E
[2019-04-09] MEDS: FAMOTIDINE 20 MG TABLET PO (20:21)
[2019-04-10] VITALS: PULSE 126
[2019-04-10 04:00] VITALS: PULSE 77
[2019-04-10 06:00] VITALS: BP 146/67; PULSE 75; RESP 18; TEMP 36.9; O2SAT 97
[2019-04-10 08:00] VITALS: BP 126/68; PULSE 80; PULSE 81; RESP 16; TEMP 36.3; O2SAT 98
[2019-04-10 08:09] LABS: Blood Urea Nitrogen 17 mg/dL (9-20); Calcium 9.1 mg/dL (8.4-10.2); Carbon Dioxide 29 mmol/L (22-30); Chloride 98 mmol/L (98-107); Estimated CRCL calculation 71 ml/min; Estimated Glomerular Filt Rate > 60; Glucose 98 mg/dL (75-110); Potassium 3.7 mmol/L (3.4-5.0); Sodium 136 mmol/L (137-145)
[2019-04-10] MEDS: POTASSIUM CHLORIDE 20 MEQ TABLET.ER PO (08:47)
[2019-04-10] MEDS: GABAPENTIN 100 MG CAPSULE PO ×2 (08:48→12:32)
[2019-04-10] MEDS: NITROFURANTOIN MACROCRYSTALS 50 MG CAP PO (08:48)
[2019-04-10] MEDS: ATORVASTATIN 40 MG TABLET PO (08:48)
[2019-04-10] MEDS: DULOXETINE HCL 30 MG CAPSULE.DR PO (08:48)
[2019-04-10] MEDS: FUROSEMIDE 80 MG TABLET PO (08:48)
[2019-04-10] MEDS: METOPROLOL TARTRATE 25 MG TABLET PO (08:48)
[2019-04-10] MEDS: FAMOTIDINE 20 MG TABLET PO (08:48)
[2019-04-10] MEDS: APIXABAN 5 MG TABLET PO (08:48)
[2019-04-10] MEDS: ASPIRIN 81 MG ENTERIC TABLET PO (08:48)
[2019-04-10] MEDS: MAGNESIUM OXIDE 400 MG TABLET PO (08:48)
[2019-04-10] MEDS: TOLNAFTATE 1% POWDER 45 GM BTL 1 APPLIC TOPICAL (10:00)
--- NOTE | 2019-04-10 10:46 | PM.DS ---
DS: Diagnosis Admitting Diagnosis Admitting Diagnosis: Unspecified atrial fibrillation Discharge Diagnosis (1) Atrial fibrillation with rapid ventricular response: Code(s): I48.91 - Unspecified atrial fibrillation Status: Acute Assessment and Plan: Patient had not had his home medications yet this morning. Will resume his metoprolol and his Cardizem orally he is also on apixaban. We can take him off of the Cardizem drip once we start him on oral medications. (2) UTI (urinary tract infection): Code(s): N39.0 - Urinary tract infection, site not specified Status: Acute Assessment and Plan: Josue is a 68 year old male who came to the hospital via private vehicle. His Kelly drove him here. The patient slid out of bed as 1 his said. However the patient said that he had stood up to get out of bed and slipped and fell on the floor. Pt has bilateral knee effusions left worse than right. Pt has had neuropathy, finds it difficult to walk. And falls easily needs rehab to help him walk. Patient with history of moderate systolic dysfunction with a EF of 35% and carotid endarterectomy will do the cardiac echo and carotid ultrasound to further evaluate his fall. The patient denies any complaint of chest pain shortness of breath dizziness, fever or chills, his main concern is a pain in his bilateral knees he would like to bilateral knee arthroplasty orthopedic surgeon is recommending conservative management before surgery, today patient participating with physical therapy, cardiac echo is pending patient is clinically stable, awaiting half-way placement, urine culture did not show significant bacterial growth will stop antibiotics (3) Chronic diastolic (congestive) heart failure: Code(s): I50.32 - Chronic diastolic (congestive) heart failure Status: Chronic Assessment and Plan: He has mixed with the EF of approximately 40-45%. We can resume his furosemide and his metoprolol. Will do the cardiac echo, pending (4) Essential (primary) hypertension: Code(s): I10 - Essential (primary) hypertension Status: Chronic Assessment and Plan: Patient is on metoprolol and Lasix continue with this please (5) Depression: Code(s): F32.9 - Major depressive disorder, single episode, unspecified Status: Chronic Assessment and Plan: Continue with duloxetine (6) Chronic kidney disease, stage 3 (moderate): Code(s): N18.3 - Chronic kidney disease, stage 3 (moderate) Status: Chronic Assessment and Plan: Much improved and BUN creatinine are normal. (7) Hyperlipidemia, unspecified: Code(s): E78.5 - Hyperlipidemia, unspecified Status: Chronic Assessment and Plan: Continue with atorvastatin however he is weak and this may be causing some of his weakness. However the patient has had multiple CVAs any has coronary artery disease we would outweigh the risk and the benefits. (8) Neuropathy: Code(s): G62.9 - Polyneuropathy, unspecified Status: Acute Assessment and Plan: Patient is on duloxetine and added gabapentin at low dose (9) Chronic pain of both knees: Code(s): M25.561 - Pain in right knee; M25.562 - Pain in left knee; G89.29 - Other chronic pain Status: Acute Assessment and Plan: Patient with bilateral knee pain patient will benefit from the knee arthroplasty orthopedic surgeon is recommending conservative management before surgery DS: Summary Hospital Course Reason for hospitalization: Sonny Salas is a 68 year old male who came to the hospital via private vehicle. His Kelly drove him here. The patient slid out of bed as 1 his said. However the patient said that he had stood up to get out of bed and slipped and fell on the floor. The stated this is not the 1st time this has occurred. The patient has some neuropathy to his feet and severe osteoarthritis. He chroni
== END 2019-04-10 13:45 | DRG 309 ==
LOC: ANHED 13:36 → ANHIMU 22:40 → ANH3MEDSUR 04-08 10:24 → ANHIMU 04-12 14:54
PROVIDERS: Emergency Medicine Emergency Medical Services; Nurse Practitioner; Admitting Provider Family Medicine; Emergency Provider Emergency Medicine; PCP Internal Medicine; Visit Provider Family Medicine
DX: I48.0 Paroxysmal atrial fibrillation (principal); I50.32 Chronic diastolic (congestive) heart failure; I13.0 Hypertensive heart and chronic kidney disease with heart failure and stage 1 through stage 4 chronic kidney disease, or unspecified chronic kidney disease; M19.90 Unspecified osteoarthritis, unspecified site; S50.312A Abrasion of left elbow, initial encounter; S50.311A Abrasion of right elbow, initial encounter; S80.812A Abrasion, left lower leg, initial encounter; S80.811A Abrasion, right lower leg, initial encounter; W19.XXXA Unspecified fall, initial encounter; Z91.81 History of falling; Z95.1 Presence of aortocoronary bypass graft; I25.10 Atherosclerotic heart disease of native coronary artery without angina pectoris; Z87.891 Personal history of nicotine dependence; Z87.442 Personal history of urinary calculi; Z90.49 Acquired absence of other specified parts of digestive tract; N18.3 Chronic kidney disease, stage 3 (moderate); F32.9 Major depressive disorder, single episode, unspecified; E78.5 Hyperlipidemia, unspecified; G62.9 Polyneuropathy, unspecified; M25.561 Pain in right knee; G89.29 Other chronic pain
CPT/HCPCS: 36415; 51701; 70450; 71046; 72125; 72131; 72170; 73562; 80048; 80053; 81001; 82550; 83735; 83880; 84443; 84484; 84550; 85025; 85027; 85610; 85730; 87086; 87088; 87804; 93005; 93880; 96365; 96366; 96375; 97110; 97116; 97161; 97165; 97530; 97535; 99285; A9270; C8929; J0131; J0696; J2270; Q9957

== ENCOUNTER 2019-05-02 00:05 | Observation (INO) | payer OTHER, MEDICAID, SELFPAY ==
[2019-05-02] VITALS (14 sets, daily range): BP systolic 104–155; BP diastolic 54–88; PULSE 68–89; RESP 13–24; TEMP 36.4–37.1; O2SAT 94–100; BMI 30.1
--- NOTE | 2019-05-02 | ECHO_ITS ---
Patient Info Name: Sonny Salas Age: 68 years : 1950 Gender: Male Ht: 70 in Wt: 210 lbs BSA: 2.19 m2 HR: 85 bpm BP: 145 / 80 mmHg Heart Rhythm: Atrial Fibrillation Technical Quality: Good Exam Date: 05/02/2019 10:00 AM Exam Location: [facility] Patient Status: Inpatient Admit Date: 05/02/2019 Staff Ordering Physician: Kimmy Bee PA-C Police Radio Dispatcher: Omar Magana RDCS Attending Provider: Kiah Glover DO Exam Type: CA echo limited w contrast Study Info Indications - Evaluate Left Ventricular Function Limited two-dimensional transthoracic echocardiogram is performed. Contrast used to opacify the left ventrical and to improve the delineation of the left ventrical endocardial borders. Contrast/Agitated Saline Contrast/Ag. Saline: Definity Amount: 2.00 ml Administered By: Mady Ledbetter RN Existing IV Access: Yes History/Risk Factors Altered mental status; CAD, HTN, CVAs, pAfib, EtOH abuse. Summary 1. Limited study with limited views. 2. Left ventricular systolic function is moderately reduced, estimated at 30-35%. 3. Left ventricular chamber dimension is severely enlarged. 4. Akinesis of the apex, apical septal, and apical inferior hubbard. Left Ventricle Left ventricular chamber dimension is severely enlarged. Left ventricular systolic function is moderately reduced, estimated at 30-35%. There is no increased left ventricular wall thickness. Limited study with limited views. Akinesis of the apex, apical septal, and apical inferior hubbard. Right Ventricle Right ventricular chamber dimension is normal. Right ventricular systolic function is normal. Aortic Valve The aortic valve is not well visualized. No aortic regurgitation. Pulmonic Valve The pulmonic valve is not well visualized. Mitral Valve The mitral valve has normal leaflets. The mitral valve annulus is mildly calcified. Trivial mitral regurgitation. Tricuspid Valve The tricuspid valve leaflets are not well visualized. Pericardium/Pleural The pericardium appears normal. Aorta The aortic root size at the sinus of Valsalva is normal. There is mild aortic atherosclerosis. Ventricles Name Value Normal LV Dimensions 2D/MM LVID Diastole (MM) 7.0 cm 4.2-5.8 LVID Systole (MM) 5.2 cm 2.5-4.0 LV Fractional Shortening/Ejection Fraction 2D/MM LV Fractional Shortening (MM) 25 % 25-43 LV EF (MM Teicholz) 49 % 52-72 LV Diastolic Volume (4C MOD) 154 ml LV EF (4C MOD) 29 % LV Diastolic Volume (2C MOD) 153 ml LV EF (2C MOD) 37 % LV Diastolic Volume (BP MOD) 153 ml 62-150 LV Diastolic Volume Index (BP MOD) 70 ml/m2 34-74 LV Systolic Volume (BP MOD) 104 ml 21-61 LV Systolic Volume Index (BP MOD) 47 ml/m2 11-31 LV EF (BP MOD) 32 % 52-72 LV
--- NOTE | ~2019-05-02 | US_ITS ---
EXAMINATION:US venous doppler LE BI INDICATION:Leg pain. Smoking history. Previous CVA. TECHNIQUE: Multiple grayscale, color flow and Doppler images of the lower extremity deep venous syste ms were obtained and reviewed. COMPARISON:No prior studies for comparison. FINDINGS: The common femoral, superficial femoral and popliteal veins demonstrate normal respiratory variation, augmentation and compressibility. Color flow is also seen within the posterior tibial, pe roneal, greater saphenous and profunda veins. IMPRESSION: 1: No lower extremity deep venous thrombosis. Reviewed, dictated and finalized at location A.
--- NOTE | ~2019-05-02 | CT_ITS ---
EXAMINATION: CT brain wo con DATE: 05/02/2019 02:40 INDICATION: Confusion and unwitnessed fall from stretcher. TECHNIQUE: Computed tomography (CT) of the head was performed without intravenous contrast. Sagittal and coronal reconstructions were performed. The mA was adjusted according to patient size. Iterative reconstruction technique was employed. The dose-length product was 681.00 mGy-cm. COMPARISON: head CT dated 05/02/2019 at 12:10 AM FINDINGS: No fracture. No acute intracranial hemorrhage, acute infarction or abnormal extra axial fluid collect ion. Small old infarct in the left cerebellar hemisphere. There is mild scattered white matter hypoat tenuation consistent with chronic small vessel ischemic disease. Symmetric prominence of the sulci an d ventricles consistent with mild age-appropriate diffuse cerebral volume loss. No mass/mass effect. Mild mucosal thickening the left maxillary and bilateral ethmoid sinuses with layering air-fluid leve l in the left maxillary sinus. Chronic small foreign body in the left upper eyelid. Mastoid air cells and middle ear cavities are clear. Intracranial calcified cerebral atherosclerosis is noted. IMPRESSION: 1. No fracture or acute intracranial process. 2. Small left cerebellar old lacunar infarct. 3. Mucosal thickening in the paranasal sinuses with air-fluid level in the left maxillary sinus. Correlate clinically for acute sinusitis. Reviewed, dictated and finalized at location A.
--- NOTE | ~2019-05-02 | CT_ITS ---
EXAMINATION: CT lumbar spine wo con DATE: 05/02/2019 02:40 INDICATION: Low back pain post fall TECHNIQUE: Computed tomography (CT) of the lumbar spine was performed without intravenous contrast. T he dose-length product was 1231.55 mGy-cm. COMPARISON: 04/06/2019 FINDINGS: Transitional sacralized L5 segment. Minimal lumbar levocurvature. Sagittal alignment is normal. Verte bral body heights are normal. Old healed fracture deformity at the posterior right 11th rib. No acute fracture. Moderate disc height loss at T10-T11, mild disc height loss at T11-T12 and T12-L1. Vacuum phenomena without disc height loss at L4-L5. Rudimentary L5-S1 disc space. Severe bilateral facet ost eoarthritis at L4-L5. Moderate right and advanced left hip osteoarthritis. Developing in close at the bilateral sacroiliac joints. Small posteriorly layering bladder calculi. There are few scattered div erticula along the sigmoid colon. Cholecystectomy clips. IMPRESSION: 1. No acute osseous abnormality. 2. Moderate lumbar spondylosis. See prior report for level by level detail. Reviewed, dictated and finalized at location A.
--- NOTE | ~2019-05-02 | CT_ITS ---
EXAMINATION: CT cervical spine wo con DATE: 05/02/2019 02:40 INDICATION: Neck pain after fall TECHNIQUE: Computed tomography (CT) of the cervical spine was performed without intravenous contrast. The dose-length product was 481 mGy-cm. Automated exposure control and iterative reconstruction tech [employer]ensor[employer] were employed. COMPARISON: CT dated 04/06/2019 FINDINGS: There is disc narrowing at C4-5 and C7-T1. There is degenerative anterolisthesis at C7-T1. Odontoid process is normal. There is emphysema in the lung apices. There is multilevel uncovertebral and facet degenerative change. No acute fracture or traumatic malalignment. Odontoid process within n ormal limits. IMPRESSION: 1. No acute abnormality of the cervical spine. 2: Moderate cervical spondylosis with levocurvature of the spine centered at the cervicothoracic junc tion. Reviewed, dictated and finalized at location A. IMPRESSION: 1. No acute abnormality of the cervical spine. 2: Moderate cervical spondylosis with levocurvature of the spine centered at th e cervicothoracic junction.
--- NOTE | ~2019-05-02 | XR_ITS ---
EXAMINATION: XR chest 1V portable DATE: 05/02/2019 01:29 INDICATION: Transient alteration of awareness TECHNIQUE: frontal view of the chest was obtained. COMPARISON: Chest radiograph dated 04/06/2019 FINDINGS: Lung volumes appear decreased likely due to more lordotic positioning. No focal airspace opacities, p ulmonary edema, pleural effusion or pneumothorax. Cardiomegaly. Coronary artery stenting. Atheroscler otic aorta. IMPRESSION: 1. Cardiomegaly. Reviewed, dictated and finalized at location A. IMPRESSION: 1. Cardiomegaly.
--- NOTE | ~2019-05-02 | CT_ITS ---
EXAMINATION: CT brain wo con DATE: 05/02/2019 00:51 INDICATION: Altered mental status TECHNIQUE: Computed tomography (CT) of the head was performed without intravenous contrast. Sagittal and coronal reconstructions were performed. The mA was adjusted according to patient size. Iterative reconstruction technique was employed. The dose-length product was 681.00 mGy-cm. COMPARISON: head CT dated 04/06/2019 FINDINGS: No acute intracranial hemorrhage, acute infarction or abnormal extra axial fluid collection. Small ol d infarct in the left cerebellar hemisphere. There is mild scattered white matter hypoattenuation con sistent with chronic small vessel ischemic disease. Symmetric prominence of the sulci and ventricles consistent with mild age-appropriate diffuse cerebral volume loss. No mass/mass effect. Mild mucosal thickening the left maxillary and bilateral ethmoid sinuses with layering air-fluid level in the lef t maxillary sinus. Chronic small foreign body in the left upper eyelid. Mastoid air cells and middle ear cavities are clear. Intracranial calcified cerebral atherosclerosis is noted. IMPRESSION: 1. Small old left cerebellar infarct. No acute intracranial process. 2. Mucosal thickening in the paranasal sinuses with air-fluid level in the left maxillary sinus. Marah elate clinically for acute sinusitis. Reviewed, dictated and finalized at location A. IMPRESSION: 1. Small old left cerebellar infarct. No acute intracranial process. 2. Mucosal thickening in the paranasal sinuses with air-fluid level in the left maxillary sinus. Correlate clinically for acute sinusitis.
--- NOTE | 2019-05-02 00:08 | ED.AMS ---
HPI - Altered Mental Status General Chief Complaint: Altered Mental Status Stated Complaint: ams Time Seen by Provider: 05/02/19 00:08 Source: patient and EMS Mode of arrival: EMS Limitations: no limitations History of Present Illness HPI narrative: A 68 y/o male presents to the ED, via EMS, with c/o AMS. According to EMS, the [facility] when he told staff that he was going to go outside to play with lightning. The patient states that he is at the ED to check his blood and was bored at the [facility]itentiary. EMS adds that the patient has dark urine. Pt had no treatment prior to his ED visit. MD complaint: altered mental status Onset (ago): day(s) (yesterday) Associated symptoms: other (dark urine) Treatments prior to arrival: other (none) Related Data Home Medications Medication Instructions Recorded Confirmed apixaban 5 mg tablet 5 mg PO BID 03/13/19 04/06/19 diltiazem HCl 240 mg capsule,24 240 mg PO DAILY 03/13/19 04/06/19 hr,extended release duloxetine 30 mg capsule,delayed 30 mg PO DAILY 03/13/19 04/06/19 release magnesium oxide 400 mg PO DAILY 03/13/19 04/06/19 potassium chloride 20 mEq 20 meq PO BID 03/13/19 04/06/19 tablet,extended release(part/cryst) Allergies Allergy/AdvReac Type Severity Reaction Status Date / Time No Known Allergies Allergy Verified 05/02/19 00:11 Review of Systems Review of Systems: All systems reviewed & are unremarkable except as noted in HPI and below Genitourinary: Genitourinary: Reports other (dark urine) Neurologic: Reports other (AMS) [facility] Past Medical History Medical History CVD (cardiovascular disease) Five cardiac stents Essential (primary) hypertension History of multiple cerebrovascular accidents (CVAs) History of tobacco abuse Kidney stones Liver abscess Drained Overweight (08/21/15) Paroxysmal atrial fibrillation PVD (peripheral vascular disease) Surgical History Surgical History H/O cataract extraction H/O heart artery stent 5 stents History of appendectomy Hx of cholecystectomy Family History Family History Mother Family history of malignant neoplasm Patient's mother is Father Patient's father is Social History Social History Social History: This patient lives with his James who he appoints as his durable power environmental attorney. He has no biological children but he is 2 to stepchildren. 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 He quit smoking in the . Prior to smoking he smoked about 2-3 packs of cigarettes a day for 30 years. His a long history of alcohol abuse but quit drinking alcohol in 2014. Prior to quitting alcohol you drink a qt of vodka a day. The patient tells me he is a DNR. Smoking packs per day: 1 Smoking cigarettes per day: 20.0 Smoking status: Former smoker Tobacco type: cigarettes Second hand tobacco smoke exposure: Yes Alcohol intake: former Substance use: never Gender identity (if verbalized by the patient): Male Spiritual care concerns: No Agree to blood products: Yes Exam Narrative: Exam Narrative: APPEARANCE: No acute distress, nontoxic, resting in bed HEENT: Normocephalic, atraumatic, OMM, TMs clear bilaterally EYES: PERRL, EOMI NECK: Supple, nontender, full range of motion without pain, no meningismus RESPIRATORY: No respiratory distress, clear to auscultation bilaterally with no rhonchi wheezing or rales CARDIOVASCULAR: Irregular irregular s murmur ABDOMINAL: Soft, nontender, nondistended MUSCULOSKELETAL: Moves all extremities. No clubbing, cyanosis or edema. NEURO: A and O ?3, following commands, speech normal, no facial droop,,muscle strength 5 out of 5 bilateral upper and lower extremities SKIN:: Warm, dry. Normal Color PSY
--- NOTE | 2019-05-02 00:10 | ECG_ITS ---
Measurements Intervals [place] Rate: 66 P: NM: 0 QRS: -11 QRSD: 124 T: 80 QT: 410 QTc: 431 Interpretive Statements ATRIAL FIBRILLATION INTRAVENTRICULAR CONDUCTION DELAY CANNOT RULE OUT SEPTAL INFARCT, AGE INDETERMINATE BORDERLINE ST-T WAVE ABNORMALITY- LATERAL LEADS BASELINE ARTIFACT- I, III, AVL ABNORMAL ECG Electronically Signed On 05-02-2019 7:06:51 CDT by Madhav Lanier D.O.
--- NOTE | 2019-05-02 00:21 | PC.NURSE ---
pt down to xray
[2019-05-02] MEDS: SODIUM CHLORIDE 0.9% IV 1,000 ML 999 ML IV CONT (00:33)
--- NOTE | 2019-05-02 00:34 | PC.NURSE ---
pt states he is not able to void at this time.
--- NOTE | 2019-05-02 00:34 | PC.NURSE ---
pt down to ct and xray
[2019-05-02 00:40] LABS: Basophils Percent Auto 0.2 % (0.2-1.2); Eosinophils Absolute Auto 0.3 K/mm3 (0-0.3); Eosinophils Percent Auto 3.2 % (0-4.4); Hematocrit 38.3 % (42.0-52.0); Hemoglobin 12.4 g/dL (14.0-18.0); Immature Granulocyte Absolute 0.04 K/mm3 (0.00-0.031); Immature Granulocyte Percent A 0.4 % (0-0.5); Lymphocytes Absolute Auto 1.18 K/mm3 (0.9-3.2); Lymphocytes Percent Auto 13.2 % (18.3-44.2); Mean Corpuscular HGB Conc 32.4 g/dl (32-36); Mean Corpuscular Hemoglobin 28.6 pg (26-34); Mean Corpuscular Volume 88.2 fl (80-100); Mean Platelet Volume 9.9 fl (7.4-10.4); Monocytes Absolute Auto 0.7 K/mm3 (0.1-0.6); Neutrophils Absolute Auto 6.7 K/mm3 (1.3-6.7); Platelet Count Result 239 k/mm3 (150-375); Red Blood Count 4.34 M/mm3 (4.6-6.20); Red Cell Distribution Width 13.9 % (11.5-14.5)
[2019-05-02 00:52] LABS: Alanine Aminotransferase 12 U/L (4-50); Albumin Level 3.6 g/dL (3.5-5.1); Alkaline Phosphatase 230 U/L (38-126); Aspartate Amino Transferase 24 U/L (17-59); Bilirubin,Total 0.7 mg/dL (0.2-1.3); Blood Urea Nitrogen 17 mg/dL (9-20); Calcium 8.8 mg/dL (8.4-10.2); Carbon Dioxide 29 mmol/L (22-30); Chloride 95 mmol/L (98-107); Estimated Glomerular Filt Rate > 60; Glucose 102 mg/dL (75-110); Potassium 3.8 mmol/L (3.4-5.0); Sodium 133 mmol/L (137-145)
[2019-05-02 01:09] LABS: INR 1.2; Prothrombin Time 14.9 Seconds (11.1-14.7)
[2019-05-02 01:10] LABS: Partial Thromboplastin Time 33.2 SECONDS (22.3-36.8)
[2019-05-02 01:26] LABS: Add Urine Microscopic? YES; Appearance Urine Clear (Clear); Bilirubin Urine Negative (Negative); Blood Urine Negative (Negative); Color Urine Yellow (Yellow); Glucose Urine UA Negative (Negative); Ketones Urine Negative (Negative); Leukocyte Esterase Ur Trace LEU/UL (Negative); Nitrate Urine Negative (Negative); Protein Urine Negative (Negative); RBC Urine 0-2 /hpf (0-2); Specific Grav Ur 1.011 (1.001-1.035); Urobilinogen Urine Negative mg/dL (<2.0)
--- NOTE | 2019-05-02 01:56 | PC.NURSE ---
Pt found on floor. Staff heard loud crash and pt calling out saying help me help me.
--- NOTE | 2019-05-02 02:00 | PC.NURSE ---
Called [facility], spoke w/ Akanksha. She states pt has been attempting to leave facility, there is someone in the room when there is not, and he has been calling at odd times. Also states pt has no hx of dementia.
--- NOTE | 2019-05-02 02:50 | PC.NURSE ---
Pt still in nonslip socks, bedrails up x2. Sitter at bedside and pt on bed alarm.
[2019-05-02 03:44] LABS: Ammonia < 9 umol/L (9-30)
--- NOTE | 2019-05-02 04:25 | ADMGEN ---
This patient, Sonny Salas, was admitted to [facility] Surg Room 324-01. Patient/family oriented to hospital policies and general routines including ID bracelet, bed and alarms, visiting hours, pain management, procedures, bathroom and other care routines, personal items, smoking policy, room service/diet, and visiting hours. Valuables list has been completed. Information on how to activate the Rapid Response Team has been discussed. Patient/Family are encouraged to report perceived risks to care and to ask questions if they do not understand what they are told or what they should do.
--- NOTE | 2019-05-02 09:50 | PM.IMHP ---
H&P: HPI History of Present Illness Chief complaint: ALTERED MENTAL STATUS Narrative: Date of Service is 05/02/19 The supervising physician for this history and physical is Dr Velazquez. Mr. Salas is a 68yo M with history of hypertension, atrial fibrillation, carotid artery disease, history of CVAs, and peripheral vascular disease who presented to the ER from the intermediate for evaluation of altered mental status. During my encounter, he is awake and alert, sitting up in bedside chair, oriented only to self. He speaks quickly, a lot of nonsensical speech and is not able to provide much of any history. Much of this history is derived from EMR and recent admission around 1 month ago, when he was treated here for A fib RVR. It is also noted that he was a bit confused at that time one month ago during his previous admission and that his had described he had been getting more confused lately. Throughout my encounter he continues to talk about shoes, buildings outside, and other off-topic subjects when asked questions. He denies any chest pain or palpitations. He reports he is always slightly short of breath with exertion and this is not worse than normal at this time. He denies cough or fevers. He denies any nausea, vomiting, abdominal pain, hematochezia or melena. He denies dizziness, weakness, headache, or vision changes. Review of Systems Review of Systems: Narrative: Twelve systems were reviewed with pertinent positives and negatives as per HPI. Except as documented, all other systems were reviewed and are negative. FORMERLY [facility] Past Medical History Medical History (Updated 05/02/19 @ 10:37 by Kimmy Bee PA-C) Anemia in other chronic diseases classified elsewhere Benign prostatic hyperplasia without lower urinary tract symptoms Carotid stenosis, bilateral CHF (congestive heart failure) CVD (cardiovascular disease) Five cardiac stents Essential (primary) hypertension History of multiple cerebrovascular accidents (CVAs) History of tobacco abuse Kidney stones Liver abscess Drained Overweight (08/21/15) Paroxysmal atrial fibrillation PVD (peripheral vascular disease) Surgical History Surgical History H/O carotid endarterectomy H/O cataract extraction H/O heart artery stent 5 stents History of appendectomy Hx of cholecystectomy Family History Family History Mother Family history of malignant neoplasm Patient's mother is Father Patient's father is Social History Social History Social History: Mr. Salas presented from [place] (discharged from to [facility] 04/10/19). It is listed in the EMR that his , James, is appointed as his durable power estate attorney. He has no biological children but he is 2 to stepchildren. 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 He quit smoking in the . Prior to smoking he smoked about 2-3 packs of cigarettes a day for 30 years. His a long history of alcohol abuse but quit drinking alcohol in 2014. Prior to quitting alcohol you drink a qt of vodka a day. DNR papers from the intermediate accompany the patient on admission. Smoking packs per day: 3 Smoking cigarettes per day: 60.0 Years smoked: 30 Smoking pack-years: 90.00 Smoking status: Former smoker Tobacco type: cigarettes Second hand tobacco smoke exposure: Yes Alcohol intake: former Substance use: unknown Gender identity (if verbalized by the patient): Male Spiritual care concerns: No Agree to blood products: Yes Meds Home Medications and Allergies Home Medications Medication Instructions Recorded Confirmed Type nitrofurantoin macrocrystal 50 mg 50 mg PO Q24H #90 cap 12/31/18 05/02/19 Rx capsule aspirin 81 mg tablet,delayed 81 mg PO DAILY #90 tablet 02/18/19 05/02/19 Rx release
[2019-05-02] MEDS: APIXABAN 5 MG TABLET PO ×2 (10:41→16:55)
[2019-05-02] MEDS: GABAPENTIN 100 MG CAPSULE PO ×3 (10:41→16:55)
[2019-05-02] MEDS: MAGNESIUM OXIDE 400 MG TABLET PO (10:41)
[2019-05-02] MEDS: DULOXETINE HCL 30 MG CAPSULE.DR PO (10:41)
[2019-05-02] MEDS: ATORVASTATIN 40 MG TABLET PO (10:41)
[2019-05-02] MEDS: ASPIRIN 81 MG ENTERIC TABLET PO (10:41)
[2019-05-02] MEDS: FAMOTIDINE 20 MG TABLET PO ×2 (10:41→21:37)
[2019-05-02] MEDS: METOPROLOL TARTRATE 25 MG TABLET PO ×2 (10:42→21:37)
--- NOTE | 2019-05-02 13:15 | CONS_ITS ---
DATE OF CONSULTATION: HISTORY OF PRESENT ILLNESS: This 68 years old has been admitted to [facility] through the emergency room on transfer from the [place] [facility] for change in mental status though at the time of initial evaluation by the hospital, he was awake, alert, sitting up in the bedside chair, oriented to himself, was speaking nonsensical speech and was unable to provide any specific history. He had been admitted about a month ago when he was treated for atrial fibrillation with rapid ventricular response. At that time, he was notedly confused and according to his , he has been getting increasingly confused over the last 4 weeks. He did not complain of any specific general problem. PAST MEDICAL HISTORY: Consistent with 1. Atrial fibrillation. 2. Carotid artery disease. 3. Multiple CVAs. 4. Hypertension. 5. Tobacco abuse. 6. In addition to renal stone, hepatic abscess, and peripheral vascular disease. PAST SURGICAL HISTORY: He has undergone cataract extraction, cardiac stenting, 5 stents with appendicectomy and cholecystectomy. SOCIAL HISTORY: He is a 90 smoking pack years over the last 30 years, though at present he is a former smoker and former drinker. MEDICATIONS: At the time of admission to the hospital, he was taking multiple medications, which were included 1. Nitrofurantoin 50 mg q.24 hours. 2. Aspirin 81 mg daily. 3. Atorvastatin 40 mg daily. 4. Furosemide 80 mg daily. 5. Metoprolol 25 mg twice a day. 6. Apixaban 5 mg twice a day. 7. Diltiazem 240 mg daily. 8. Duloxetine 30 mg daily. 9. Potassium chloride 20 mEq twice a day. 10. Oxycodone 10 mg q.4 hours p.r.n. 11. Famotidine 20 mg q.12 hours. 12. Gabapentin 100 mg twice a day. ALLERGIES: HE IS NOT ALLERGIC TO ANY MEDICATION. ? CBC revealed WBCs of 9.0, hemoglobin 12.4, platelet count 239. Hepatic enzymes normal except alkaline phos 230. UA is also negative. PHYSICAL EXAMINATION: VITAL SIGNS: Since admission, his evaluation revealed him to be afebrile with pulse 77, respiration 18, blood pressure 152/64, which has come down to 104/88, and pulse ox 97%. GENERAL: On examination, awake, alert, in no obvious acute distress. HEENT: Head normocephalic with no cranial bruit. Ear, nose, throat exam normal. NECK: Supple with no meningeal signs. No cervical bruit. HEART: Regular. LUNGS: Clear. ABDOMEN: Soft. NEUROLOGICAL: Pupils round and regular. Collins of vision full. Extraocular movements full. Face symmetrical. Tongue midline. Motor examination revealed him to have fairly normal strength. Reflexes sluggish. Plantars downgoing. LABORATORY STUDIES: Evaluation up until now includes the CBC without leukocytosis at present. PT 14.9. Electrolytes fairly normal. Alkaline phos 230. UA is also with trace leukocyte esterase, 4 to 6 WBCs. He had a cervical spine CT scan done, which documented moderate cervical spondylosis with levo-curvature of the spine at cervicothoracic junction. Lumbar spine revealed moderate lumbar spondylosis. Head CT scan, no acute fracture. A small left cerebellar old lacunar infarct and has had echocardiogram on April 08, which was severe left ventricular enlargement, severe global hypokinesia with akinesis of the apex in left apical septal and inferior apical areas, and grade 2 diastolic dysfunction. In addition to the enlarged left atrium, slight enlargement of the right atrium, mild mitral wall regurgitation, pulmonary hypertension, atrial fibrillation, and PVCs. Doppler study of the carotid at that particular time was 50% to 69% stenosis in the right internal carotid artery less than 50% stenosis. Otherwise, at this particular time, he is already on 1. Apixaban 5 mg twice a day. 2. Aspirin 81 mg daily. 3. Atorvastatin 40 mg daily. 4.
[2019-05-03 04:00] VITALS: PULSE 91
[2019-05-03 06:00] VITALS: BP 146/78; PULSE 95; RESP 20; TEMP 37; O2SAT 94
[2019-05-03 06:14] LABS: Basophils Percent Auto 0.2 % (0.2-1.2); Eosinophils Absolute Auto 0.2 K/mm3 (0-0.3); Eosinophils Percent Auto 2.5 % (0-4.4); Hematocrit 38.2 % (42.0-52.0); Hemoglobin 12.4 g/dL (14.0-18.0); Immature Granulocyte Absolute 0.04 K/mm3 (0.00-0.031); Immature Granulocyte Percent A 0.5 % (0-0.5); Lymphocytes Absolute Auto 1.16 K/mm3 (0.9-3.2); Lymphocytes Percent Auto 13.4 % (18.3-44.2); Mean Corpuscular HGB Conc 32.5 g/dl (32-36); Mean Corpuscular Hemoglobin 28.1 pg (26-34); Mean Corpuscular Volume 86.6 fl (80-100); Mean Platelet Volume 9.5 fl (7.4-10.4); Monocytes Absolute Auto 0.7 K/mm3 (0.1-0.6); Monocytes Percent Auto 8.3 % (2.6-8.5); Neutrophils Absolute Auto 6.5 K/mm3 (1.3-6.7); Neutrophils Percent Auto 75.1 % (45.5-73.1); Platelet Count Result 223 k/mm3 (150-375); Red Blood Count 4.41 M/mm3 (4.6-6.20); Red Cell Distribution Width 14.1 % (11.5-14.5); White Blood Count 8.7 K/mm3 (4.5-10.0)
[2019-05-03 06:37] LABS: Blood Urea Nitrogen 6 mg/dL (9-20); Calcium 8.8 mg/dL (8.4-10.2); Carbon Dioxide 27 mmol/L (22-30); Chloride 105 mmol/L (98-107); Estimated CRCL calculation 116 ml/min; Estimated Glomerular Filt Rate > 60; Glucose 102 mg/dL (75-110); Phosphorus 3.2 mg/dL (2.5-4.5); Potassium 3.4 mmol/L (3.4-5.0); Sodium 137 mmol/L (137-145)
[2019-05-03] MEDS: FAMOTIDINE 20 MG TABLET PO (07:51)
[2019-05-03] MEDS: ASPIRIN 81 MG ENTERIC TABLET PO (07:51)
[2019-05-03] MEDS: DULOXETINE HCL 30 MG CAPSULE.DR PO (07:51)
[2019-05-03] MEDS: ATORVASTATIN 40 MG TABLET PO (07:51)
[2019-05-03] MEDS: APIXABAN 5 MG TABLET PO (07:51)
[2019-05-03 07:52] VITALS: PULSE 95
[2019-05-03] MEDS: MAGNESIUM OXIDE 400 MG TABLET PO (07:52)
[2019-05-03] MEDS: FUROSEMIDE 80 MG TABLET PO (07:52)
[2019-05-03] MEDS: GABAPENTIN 100 MG CAPSULE PO ×2 (07:52→12:22)
[2019-05-03] MEDS: METOPROLOL TARTRATE 25 MG TABLET PO (07:52)
[2019-05-03 08:00] VITALS: PULSE 97
--- NOTE | 2019-05-03 11:53 | PCOTNOTE ---
Attempted to see patient this a.m. When asked to participate in OT session, patient reported of not feeling good and did not want to participate. Patient refused OT session at this time.
[2019-05-03 14:00] VITALS: BP 143/86; PULSE 94; RESP 22; TEMP 37.4; O2SAT 94
--- NOTE | 2019-05-03 14:27 | PCPTNOTE ---
The patient treatment was not able to be completed due to patient refusing therapy. Patient states We can do it tomorrow. Will plan to continue treatment per plan of care.
--- NOTE | 2019-05-03 17:13 | PM.DS ---
DS: Diagnosis Admitting Diagnosis Admitting Diagnosis: Altered mental status, unspecified Discharge Diagnosis (1) Altered mental status: Qualifiers: Altered mental status type: unspecified Qualified Code(s): R41.82 - Altered mental status, unspecified Code(s): R41.82 - Altered mental status, unspecified Status: Acute Assessment and Plan: Date of Service 05/03/19 Mr. Salas is a 68yo M with history of CHF, hypertension, prior CVA, and paroxysmal atrial fibrillation who presented to the ED from SNF due to altered mental status. It was reported that he was walking around, trying to leave the alf, stating he wanted to go play outside with lightning . On arrival, he continued with some nonsensical speech. He was awake, alert, and able to answer some questions appropriately but mostly would speak far off-topic when asked questions. CT brain revealed evidence of an old infarct, but no acute intracranial abnormalities. He reportedly fell while in the ER so another CT brain was obtained, again with no acute findings or fracture. Unable to obtain MRI brain due to a small piece of metal previously noted in left upper eyelid in 2018. Ammonia level was normal. Urinalysis was grossly unremarkable, and routine labs were within normal limits. Patient has combined systolic and diastolic CHF, echocardiogram noted below. Noted to have lower extremity edema VANESA and venous dopplers VANESA lower extremities demonstrated no DVT. No infectious process was suspected. Neurology was consulted and he was evaluated by Dr Beltrán. A note from 1 month ago when he was admitted suggests his reported he has been getting more confused, suggesting his behavior may not be an acute change. He has been at the alf since 04/10/19. With new visitor restrictions it is possible that change in routines and no visitors at the alf is causing him to become more confused. His symptoms seem consistent with early signs of dementia, but he does not yet carry that diagnosis. He was hemodynamically stable for discharge back to SNF 05/03/19 to be seen by alf provider in 1 week. (2) CHF (congestive heart failure): Qualifiers: Heart failure type: combined systolic and diastolic Heart failure chronicity: chronic Qualified Code(s): I50.42 - Chronic combined systolic (congestive) and diastolic (congestive) heart failure Code(s): I50.9 - Heart failure, unspecified Status: Chronic Assessment and Plan: Echo 04/09/19 with EF 25-30% with hypokinetic wall motion. Since he was in A fib RVR at that time, limited echo was repeated to ensure no clot was present and reevaluate EF. Home diltiazem was discontinued due to low EF. Continue Lasix, Lopressor increased. Instructed to keep his appointment with Dr Uribe in July. Echocardiogram Limited Views 05/02/19: 1. Limited study with limited views. 2. Left ventricular systolic function is moderately reduced, estimated at 30-35%. 3. Left ventricular chamber dimension is severely enlarged. 4. Akinesis of the apex, apical septal, and apical inferior hubbard. (3) Paroxysmal atrial fibrillation: Code(s): I48.0 - Paroxysmal atrial fibrillation Status: Chronic Assessment and Plan: Rate controlled, continue lopressor. In A fib during this admission. He is on chronic anticoagulation with Eliquis since 2018. (4) Essential (primary) hypertension: Code(s): I10 - Essential (primary) hypertension Status: Chronic Assessment and Plan: Home Lopressor dose increased in light of stopping his diltiazem. (5) Lower extremity edema: Code(s): R60.0 - Localized edema Status: Acute Assessment and Plan: R > L. May be due to his PVD. Venous dopplers negative for DVT. DS: Summary Time
== END 2019-05-03 16:01 ==
LOC: ANHED 00:23 → ANH3MEDSUR 03:37
PROVIDERS: Admitting Provider Internal Medicine; Emergency Provider Emergency Medicine; PCP Internal Medicine; Visit Provider Family Medicine
DX: R41.82 Altered mental status, unspecified (principal); I11.0 Hypertensive heart disease with heart failure; I50.42 Chronic combined systolic (congestive) and diastolic (congestive) heart failure; I48.0 Paroxysmal atrial fibrillation; R60.0 Localized edema; I73.9 Peripheral vascular disease, unspecified; I65.23 Occlusion and stenosis of bilateral carotid arteries; J34.89 Other specified disorders of nose and nasal sinuses; M47.816 Spondylosis without myelopathy or radiculopathy, lumbar region; M47.812 Spondylosis without myelopathy or radiculopathy, cervical region; Z66 Do not resuscitate; Z87.891 Personal history of nicotine dependence; Z86.73 Personal history of transient ischemic attack (TIA), and cerebral infarction without residual deficits; Z95.5 Presence of coronary angioplasty implant and graft; W19.XXXA Unspecified fall, initial encounter
CPT/HCPCS: 36415; 51701; 70450; 71045; 72125; 72131; 80048; 80053; 81001; 82140; 83735; 84100; 85025; 85610; 85730; 87081; 93005; 93308; 93970; 96360; 97161; 97165; 99285; A9270; C8924; G0378; J7030; Q9957

== ENCOUNTER 2019-06-19 11:31 | Observation (INO) | payer OTHER, SELFPAY ==
--- NOTE | ~2019-06-19 | CT_ITS ---
EXAMINATION: CT brain wo con INDICATION: Transient alteration of awareness COMPARISON: 05/02/2019 TECHNIQUE: Standard unenhanced head CT. The dose-length product (DLP) was 681.00 mGy-cm. The mA was a djusted according to patient size. Iterative reconstruction technique was employed. FINDINGS: There is no acute intraparenchymal hemorrhage. No evidence of mass lesion. No evidence of a cute infarction. A small chronic left cerebellar lacunar infarct is again noted. There is moderate pe riventricular and subcortical hypodensity probably related to small vessel ischemic disease. There is moderate prominence of the sulci and ventricles related to cerebral atrophy. Intracranial calcified cerebral atherosclerosis is noted. There are no extra-axial collections. There is no mass effect or m idline shift. The orbits and soft tissues are unremarkable. The visualized sinuses and mastoid air c ells are well aerated. IMPRESSION: 1. No acute intracranial abnormality. 2. Age related findings. Reviewed, dictated and finalized at location A.
[2019-06-19 11:32] VITALS: BP 106/82; PULSE 102; RESP 16; TEMP 36.7; O2SAT 99
--- NOTE | 2019-06-19 11:37 | ECG_ITS ---
Measurements Intervals [place] Rate: 102 P: TN: 0 QRS: -17 QRSD: 99 T: 100 QT: 370 QTc: 483 Interpretive Statements ATRIAL FIBRILLATION WITH RAPID VENTRICULAR RESPONSE VENTRICULAR PREMATURE COMPLEXES BORDERLINE R WAVE PROGRESSION, ANTERIOR LEADS CONSIDER INFERIOR INFARCT, AGE INDETERMINATE ST-T WAVE ABNORMALITY IN HIGH LATERAL LEADS- CONSIDER ISCHEMIA BASELINE ARTIFACT- II, III, AVR, AVL, AVF ABNORMAL ECG Electronically Signed On 06-19-2019 11:46:50 CDT by Madhav Lanier D.O.
--- NOTE | 2019-06-19 11:38 | ED.RECABL ---
HPI - Recheck/Abnormal Lab/Rx General Chief Complaint: Recheck/Abnormal Lab/Rx Stated Complaint: ABNORMAL LABS Time Seen by Provider: 06/19/19 11:32 Source: patient, old records reviewed and other (alf physician) Mode of arrival: EMS Limitations: no limitations History of Present Illness HPI narrative: Patient is a 69-year-old male who presents to the emergency department for elevated BUN and creatinine as well as hyperkalemia. Patient is currently under the care of Dr. Fuentes at [facility]. Patient has been in [facility] facility since April of this year. Patient was just discharged from [facility] late April after being admitted with altered mental status. Dr. Fuentes reports checking labs on the patient at the end of May and his creatinine was normal at that time. Today Dr. Fuentes received report on labs drawn a couple of days ago and patient's creatinine has increased to 3.3 and his potassium to 5.2. Patient was sent to the emergency department for further evaluation and treatment as he will need hospitalization for his acute renal failure. Patient reports history of vomiting and diarrhea intermittently over the past couple of weeks. He states he is able to drink fluids and keep them down. He does report what sounds like decreased urine output. He denies any rodney symptoms of urinary retention or inability to urinate. Patient has chronic pain in his shoulders and back which he states is unchanged from his baseline. Patient denies any other acute symptoms at this time. MD complaint: abnormal lab Related Data Home Medications Medication Instructions Recorded Confirmed apixaban 5 mg tablet 5 mg PO BID 03/13/19 06/19/19 duloxetine 30 mg capsule,delayed 30 mg PO DAILY 03/13/19 06/19/19 release magnesium oxide 400 mg PO DAILY 03/13/19 06/19/19 potassium chloride 20 mEq 20 meq PO BID 03/13/19 06/19/19 tablet,extended release(part/cryst) gabapentin 300 mg PO TID 06/19/19 06/19/19 lisinopril 5 mg PO DAILY 06/19/19 06/19/19 multivitamin 1 tablet PO DAILY 06/19/19 06/19/19 oxycodone 5 mg PO QID 06/19/19 06/19/19 pregabalin [Lyrica] 50 mg PO TID 06/19/19 06/19/19 Allergies Allergy/AdvReac Type Severity Reaction Status Date / Time No Known Allergies Allergy Verified 05/02/19 00:11 Review of Systems Review of Systems: All systems reviewed & are unremarkable except as noted in HPI and below Gastrointestinal: Gastrointestinal: Denies abdominal pain, Reports diarrhea, Reports nausea and Reports vomiting Musculoskeletal: Musculoskeletal: Reports back pain and Reports arthralgias [facility] Surgical History Surgical History H/O carotid endarterectomy H/O cataract extraction H/O heart artery stent 5 stents History of appendectomy Hx of cholecystectomy Family History Family History Mother Family history of malignant neoplasm Patient's mother is Father Patient's father is Social History Social History (Updated 06/19/19 @ 15:42 by Shelby Rush NP) Social History: Mr. Salas presented from [place] (discharged from to [facility] 04/10/19). It is listed in the EMR that his , James, is appointed as his durable power rn cardiac rehab. He has no biological children but he is 2 to stepchildren. 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 He quit smoking in the . Prior to smoking he smoked about 2-3 packs of cigarettes a day for 30 years. His a long history of alcohol abuse but quit drinking alcohol in 2014. Prior to quitting alcohol you drink a qt of vodka a day. DNR papers from the retirement accompany the patient on admission. Smoking packs per day: 3 Smoking cigarettes per day: 60.0 Years smoked: 30 Smoking pack-years: 90.00 Smoking status: Unknown if ever smoked Tobacco type: cigarettes
[2019-06-19] MEDS: SODIUM CHLORIDE 0.9% IV 1,000 ML 150 ML IV CONT (11:44)
[2019-06-19 12:03] LABS: Basophils Percent Auto 0.3 % (0.2-1.2); Eosinophils Absolute Auto 0.5 K/mm3 (0-0.3); Eosinophils Percent Auto 7.3 % (0-4.4); Hematocrit 42.5 % (42.0-52.0); Hemoglobin 13.5 g/dL (14.0-18.0); Immature Granulocyte Absolute 0.02 K/mm3 (0.00-0.031); Immature Granulocyte Percent A 0.3 % (0-0.5); Lymphocytes Absolute Auto 1.26 K/mm3 (0.9-3.2); Lymphocytes Percent Auto 18.1 % (18.3-44.2); Mean Corpuscular HGB Conc 31.8 g/dl (32-36); Mean Corpuscular Hemoglobin 28.7 pg (26-34); Mean Corpuscular Volume 90.2 fl (80-100); Mean Platelet Volume 11.3 fl (7.4-10.4); Monocytes Absolute Auto 0.7 K/mm3 (0.1-0.6); Monocytes Percent Auto 10.2 % (2.6-8.5); Neutrophils Absolute Auto 4.4 K/mm3 (1.3-6.7); Neutrophils Percent Auto 63.8 % (45.5-73.1); Platelet Count Result 278 k/mm3 (150-375); Red Blood Count 4.71 M/mm3 (4.6-6.20); Red Cell Distribution Width 16.4 % (11.5-14.5)
[2019-06-19 12:15] LABS: INR 1.7; Prothrombin Time 19.1 Seconds (11.1-14.7)
[2019-06-19 12:16] LABS: Partial Thromboplastin Time 49.8 SECONDS (22.3-36.8)
[2019-06-19 12:27] LABS: Alanine Aminotransferase 25 U/L (4-50); Albumin Level 3.8 g/dL (3.5-5.1); Alkaline Phosphatase 184 U/L (38-126); Aspartate Amino Transferase 39 U/L (17-59); Bilirubin,Total 1.1 mg/dL (0.2-1.3); Blood Urea Nitrogen 45 mg/dL (9-20); Carbon Dioxide 29 mmol/L (22-30); Chloride 99 mmol/L (98-107); Estimated Glomerular Filt Rate 38; Glucose 94 mg/dL (75-110); Magnesium 2.4 mg/dL (1.6-2.3); Phosphorus 4.2 mg/dL (2.5-4.5); Potassium 4.7 mmol/L (3.4-5.0); Sodium 138 mmol/L (137-145)
[2019-06-19 12:30] VITALS: BP 106/82; PULSE 56; RESP 18; O2SAT 97
[2019-06-19 13:03] LABS: Add Urine Microscopic? YES; Appearance Urine Clear (Clear); Bacteria Urine Trace /hpf; Bilirubin Urine Negative (Negative); Blood Urine Negative (Negative); Color Urine Yellow (Yellow); Glucose Urine UA Negative (Negative); Ketones Urine Negative (Negative); Leukocyte Esterase Ur 1+ LEU/UL (Negative); Nitrate Urine Negative (Negative); Protein Urine Negative (Negative); RBC Urine 0-2 /hpf (0-2); Specific Grav Ur 1.013 (1.001-1.035); Squamous Epithelial Cell Urine Rare /hpf (Few); Urobilinogen Urine Negative mg/dL (<2.0); WBC Urine 31-50 /hpf
[2019-06-19 13:30] VITALS: BP 111/64; PULSE 79; RESP 21; O2SAT 98
--- NOTE | 2019-06-19 14:24 | PC.NURSE ---
This patient, Sonny Salas, was admitted to [facility] Surg Room 307-01. Patient/family oriented to hospital policies and general routines including ID bracelet, bed and alarms, visiting hours, pain management, procedures, bathroom and other care routines, personal items, smoking policy, room service/diet, and visiting hours. Valuables list has been completed. Information on how to activate the Rapid Response Team has been discussed. Patient/Family are encouraged to report perceived risks to care and to ask questions if they do not understand what they are told or what they should do. Patient confused and disoriented. Per ED Report, patient pulling out IV line, attempting to get out of bed and disoriented to place and time.
[2019-06-19 14:31] VITALS: BMI 26.2
--- NOTE | 2019-06-19 14:45 | PC.NURSE ---
[facility] [employer] notified of patient confusion, agitation, and combativeness. Patient hitting and kicking at staff while attempting to get out of bed. Patient also yelling and cursing at staff. Orders noted.
[2019-06-19] MEDS: HALOPERIDOL LACTATE 5 MG/ML VIAL IM (15:17)
--- NOTE | 2019-06-19 15:28 | PM.IMHP ---
H&P: HPI History of Present Illness Chief complaint: acute renal failure,dehydration,nausea/vomiting/di Narrative: Sonny Salas is a 69 year old male is well known to our group. He is from [facility] The patient had a creatinine of 3.3 that was reported on 06/19/2019. Potassium was 5.2 at that time. Patient was last discharged from [facility] on 05/03/19 after being admitted the day before. Patient has frequent UTIs. Patient came in today because he had altered mental status. At this time he is being aggressive. Patient was sent to the emergency room for further evaluation of abnormal labs. Patient reported to ER that he was having vomiting and diarrhea intermittently over the past couple weeks. He was able to drink some water and keep that down. Today's patient's creatinines 1.8. Urine was questionable for UTI he has 1+ leukocyte esterase. WBCs 30 1-50. Patient was started on Rocephin. Urine cultures are pending. Patient's EKG was read as atrial fibrillation with rapid ventricular response. Given Rocephin in the emergency room. The patient was being aggressive with the staff on 3rd floor and he was given Haldol injection. The patient was combative and pulling at his IV. He was physically abusive to the staff and being belligerent. He was calling the nurses name. The patient thinks that he is in some is living room and wants to leave. Patient stated he is a DNR. He does not want to be resuscitated. Review of Systems Review of Systems: Narrative: Patient is confused and I am unable to obtain information from the patient or physically at the time. Information is obtained from his records. All systems reviewed & are unremarkable except as noted in HPI and below Constitutional: Constitutional: Reports as per HPI and Reports no additional constitutional complaints Eyes: Eyes: Reports as per HPI and Reports no additional eye complaints ENT: Reports system reviewed and no additional complaints, except as documented and Reports Normal hearing present Cardiovascular: Cardiovascular: Reports no additional cardiovascular complaints Respiratory: Respiratory: Reports no additional respiratory complaints and Reports no additional respiratory complaints Gastrointestinal: Gastrointestinal: Reports as per HPI and Reports no additional gastrointestinal complaints Musculoskeletal: Musculoskeletal: Reports no additional musculoskeletal complaints Integumentary/Breasts: Skin/Breast: Reports system reviewed and no additional complaints, except as docu and Reports as per HPI Neurologic: Reports system reviewed and no additional complaints, except as documented, Reports as per HPI and Reports Normal hearing present Psychiatric: Psychiatric: Reports no additional psychiatric complaints and Reports as per HPI Endocrine: Endocrine: Reports no additional endocrine complaints Hematologic/Lymphatic: Hematologic/Lymphatic: Reports no additional hematologic/lymphatic complaints Allergic/Immunologic: Allergic/Immunologic: Reports no additional allergic/immunologic complaints [facility] Surgical History Surgical History H/O carotid endarterectomy H/O cataract extraction H/O heart artery stent 5 stents History of appendectomy Hx of cholecystectomy Family History Family History Mother Family history of malignant neoplasm Patient's mother is Father Patient's father is Social History Social History (Updated 06/19/19 @ 15:42 by Shelby Rush NP) Social History: Mr. Salas presented from [place] (discharged from to [place] 04/10/19). It is listed in the EMR that his , James, is appointed as his durable power privacy attorney. He has no biological children but he is 2 to stepchildren. 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 He quit smoking in the . Prior to smoking he sm
[2019-06-19] MEDS: GABAPENTIN 300 MG CAPSULE PO (18:05)
[2019-06-19] MEDS: APIXABAN 5 MG TABLET PO (18:05)
[2019-06-19] MEDS: POTASSIUM CHLORIDE 20 MEQ TABLET.ER PO (18:05)
[2019-06-19] MEDS: cefTRIAXone 1 GM VIAL IM (18:11)
[2019-06-19] MEDS: LIDOCAINE HCL 1% LOCAL INJ 10 ML VIAL 2.1 ML XX (18:11)
[2019-06-19] MEDS: PREGABALIN 50 MG CAPSULE PO (20:22)
[2019-06-19] MEDS: FAMOTIDINE 20 MG TABLET PO (20:22)
[2019-06-19 20:24] VITALS: PULSE 66
[2019-06-19] MEDS: METOPROLOL TARTRATE 50 MG TAB PO (20:24)
[2019-06-19 21:35] VITALS: BP 114/60; PULSE 98; RESP 18; TEMP 36.4; O2SAT 94
[2019-06-20] VITALS: PULSE 83
[2019-06-20] MEDS: ALPRAZOLAM 0.25 MG TABLET PO ×2 (03:19→13:59)
[2019-06-20 04:00] VITALS: PULSE 89
[2019-06-20 06:00] VITALS: BP 106/50; PULSE 94; RESP 18; TEMP 36.2; O2SAT 92
[2019-06-20] MEDS: GABAPENTIN 300 MG CAPSULE PO ×2 (08:30→18:18)
[2019-06-20] MEDS: MAGNESIUM OXIDE 400 MG TABLET PO (08:30)
[2019-06-20] MEDS: DULOXETINE HCL 30 MG CAPSULE.DR PO (08:30)
[2019-06-20] MEDS: MULTIVITAMINS THERAPEUTIC TAB (*BKC) 1 TABLET PO (08:30)
[2019-06-20] MEDS: METOPROLOL TARTRATE 50 MG TAB PO ×2 (08:30→20:07)
[2019-06-20] MEDS: ASPIRIN 81 MG ENTERIC TABLET PO (08:30)
[2019-06-20] MEDS: ATORVASTATIN 40 MG TABLET PO (08:30)
[2019-06-20] MEDS: APIXABAN 5 MG TABLET PO ×2 (08:31→18:19)
[2019-06-20] MEDS: FAMOTIDINE 20 MG TABLET PO ×2 (08:31→20:06)
[2019-06-20] MEDS: POTASSIUM CHLORIDE 20 MEQ TABLET.ER PO (08:31)
[2019-06-20 10:10] LABS: Basophils Percent Auto 0.2 % (0.2-1.2); Eosinophils Absolute Auto 0.4 K/mm3 (0-0.3); Eosinophils Percent Auto 4.7 % (0-4.4); Hematocrit 45.1 % (42.0-52.0); Hemoglobin 14.4 g/dL (14.0-18.0); Immature Granulocyte Absolute 0.03 K/mm3 (0.00-0.031); Immature Granulocyte Percent A 0.4 % (0-0.5); Lymphocytes Absolute Auto 1.17 K/mm3 (0.9-3.2); Lymphocytes Percent Auto 14.2 % (18.3-44.2); Mean Corpuscular HGB Conc 31.9 g/dl (32-36); Mean Corpuscular Hemoglobin 28.3 pg (26-34); Mean Corpuscular Volume 88.6 fl (80-100); Mean Platelet Volume 10.7 fl (7.4-10.4); Monocytes Absolute Auto 0.7 K/mm3 (0.1-0.6); Neutrophils Absolute Auto 5.9 K/mm3 (1.3-6.7); Neutrophils Percent Auto 71.5 % (45.5-73.1); Platelet Count Result 264 k/mm3 (150-375); Red Blood Count 5.09 M/mm3 (4.6-6.20); Red Cell Distribution Width 16.5 % (11.5-14.5); White Blood Count 8.2 K/mm3 (4.5-10.0)
[2019-06-20 10:35] LABS: Alanine Aminotransferase 24 U/L (4-50); Albumin Level 4.1 g/dL (3.5-5.1); Alkaline Phosphatase 213 U/L (38-126); Aspartate Amino Transferase 38 U/L (17-59); Bilirubin,Total 1.2 mg/dL (0.2-1.3); Blood Urea Nitrogen 30 mg/dL (9-20); Calcium 9.7 mg/dL (8.4-10.2); Carbon Dioxide 30 mmol/L (22-30); Chloride 102 mmol/L (98-107); Estimated CRCL calculation 54 ml/min; Estimated Glomerular Filt Rate 60; Glucose 101 mg/dL (75-110); Magnesium 2.2 mg/dL (1.6-2.3); Potassium 5.2 mmol/L (3.4-5.0); Sodium 139 mmol/L (137-145)
[2019-06-20 13:15] VITALS: BMI 11.0
[2019-06-20 14:00] VITALS: BP 119/49; PULSE 95; RESP 16; TEMP 36.4; O2SAT 98
--- NOTE | 2019-06-20 15:58 | PM.IMPN ---
Progress Note: A&P Assessment and Plan (1) Acute on chronic kidney failure: Code(s): N17.9 - Acute kidney failure, unspecified; N18.9 - Chronic kidney disease, unspecified Status: Acute Assessment and Plan: Patient has a history of CKD Stage 3. He had abnormal labs drawn at [facility] which prompted him to be evaluated in ER. Per chart review, it is reported that his creatinine was 3.3 on 06/19/2019. At presentation to facility his creatinine was 1.8, BUN forty-five, and GFR 38. Today creatinine is 1.2, BUN 30, and GFR 60. Patient was noted to have poor oral intake at [facility] and DONNIE is likely prerenal due to dehydration. Patient was adequately rehydrated with IV fluids. IV fluids are now stopped as patient is euvolemic and renal function has improved. Continue to monitor kidney function Renally dose medications avoid nephrotoxic agents (2) Acute renal failure: Code(s): N17.9 - Acute kidney failure, unspecified Status: Acute Assessment and Plan: Patient had normal labs drawn at [facility] which prompted him to be evaluated in ER. Per chart review, it is reported that his creatinine was 3.3 on 06/19/2019. At presentation to facility his creatinine was 1.8, BUN forty-five, and GFR 38. Today creatinine is 1.2, BUN 30, and GFR 60. Patient was noted to have poor oral intake at [facility] and DONNIE is likely prerenal due to dehydration. Patient was adequately rehydrated with IV fluids. IV fluids are now stopped as patient is euvolemic and renal function has improved. Additionally, patient has been pulling out IV. (3) CHF (congestive heart failure): Qualifiers: Heart failure type: combined systolic and diastolic Heart failure chronicity: chronic Qualified Code(s): I50.42 - Chronic combined systolic (congestive) and diastolic (congestive) heart failure Code(s): I50.9 - Heart failure, unspecified Status: Chronic Assessment and Plan: Patient has a documented history of CHF. Recent echo in April 2019 reveals combined systolic and diastolic dysfunction. EF was 33%. On exam, patient appears euvolemic, does not exhibit cough or other symptoms of fluid overload. Weight patient daily Continue metoprolol and lisinopril Home Lasix was initially held due to dehydration and DONNIE. Plan to resume when clinically appropriate. (4) Altered mental status: Qualifiers: Altered mental status type: unspecified Qualified Code(s): R41.82 - Altered mental status, unspecified Code(s): R41.82 - Altered mental status, unspecified Status: Acute Assessment and Plan: Patient is alert and oriented x2 today with nonsensical speech and agitation. I spoke with [facility] staff who believes his mental status is at baseline. Per chart review, patient has been exhibiting symptoms of dementia for some time. If any acute change has occurred, this could be due to the dehydration or possible urinary tract infection. Continue IV antibiotic Patient would benefit from CT scan, however I do not believe he would be able to tolerate at this time. Will attempt tomorrow if agitation improved. Continue to monitor mental status. (5) UTI (urinary tract infection): Code(s): N39.0 - Urinary tract infection, site not specified Status: Acute Assessment and Plan: Urinalysis suspicious for UTI with 1+ leuk esterase and 31-50 WBC. Urine culture and blood cultures are pending. He is without leukocytosis and is afebrile. He has no CVA tenderness. He is not able to adequately relay any urinary symptoms. Continue IM Rocephin. Patient has been removing IV. Rocephin was initiated on 06/19/2019 Await results of urine culture and blood culture (6) Paroxysmal atrial fibrillation: Code(s): I48.0 - Paroxysmal atrial fibrillation Status: Chronic Assessment and Plan: Patient has [facility]
[2019-06-20 17:39] LABS: Potassium 4.9 mmol/L (3.4-5.0)
[2019-06-20] MEDS: LIDOCAINE HCL 1% LOCAL INJ 10 ML VIAL 2.1 ML XX (18:16)
[2019-06-20] MEDS: cefTRIAXone 1 GM VIAL IM (18:16)
[2019-06-20] MEDS: PREGABALIN 50 MG CAPSULE PO ×2 (18:19→18:20)
[2019-06-20 20:07] VITALS: PULSE 68
[2019-06-20 22:00] VITALS: BP 155/75; PULSE 56; RESP 16; TEMP 35.8; O2SAT 98
[2019-06-21] VITALS (10 sets, daily range): BP systolic 99–138; BP diastolic 49–90; PULSE 67–92; RESP 16–18; TEMP 35.9–36.6; O2SAT 93–96
--- NOTE | 2019-06-21 08:10 | PC.NURSE ---
on 06/19 patient refusing telemetry. D/w Carissa and she stated that tele could be d/c'd and that she would place the order. Winnie ARMENTA stopped the tele, but no order was placed. At 0755 on 06/20, Carissa was notified that telemetry was still ordered but not currently on. She stated that she would like the tele on if patient agreeable. Tele placed on patient at this time. Patient agreeable to telemetry and tolerating well.
[2019-06-21] MEDS: ASPIRIN 81 MG ENTERIC TABLET PO (10:07)
[2019-06-21] MEDS: DULOXETINE HCL 30 MG CAPSULE.DR PO (10:08)
[2019-06-21] MEDS: GABAPENTIN 300 MG CAPSULE PO ×3 (10:08→17:52)
[2019-06-21] MEDS: APIXABAN 5 MG TABLET PO ×2 (10:08→17:52)
[2019-06-21] MEDS: MAGNESIUM OXIDE 400 MG TABLET PO (10:08)
[2019-06-21] MEDS: FAMOTIDINE 20 MG TABLET PO ×2 (10:08→21:14)
[2019-06-21] MEDS: ATORVASTATIN 40 MG TABLET PO (10:08)
[2019-06-21] MEDS: MULTIVITAMINS THERAPEUTIC TAB (*BKC) 1 TABLET PO (10:08)
[2019-06-21] MEDS: PREGABALIN 50 MG CAPSULE PO ×3 (10:08→17:52)
[2019-06-21] MEDS: METOPROLOL TARTRATE 50 MG TAB PO ×2 (10:12→21:14)
[2019-06-21 10:36] LABS: Basophils Percent Auto 0.4 % (0.2-1.2); Eosinophils Absolute Auto 0.4 K/mm3 (0-0.3); Eosinophils Percent Auto 5.4 % (0-4.4); Hematocrit 43.4 % (42.0-52.0); Immature Granulocyte Absolute 0.02 K/mm3 (0.00-0.031); Immature Granulocyte Percent A 0.3 % (0-0.5); Lymphocytes Percent Auto 16.7 % (18.3-44.2); Mean Corpuscular HGB Conc 32.3 g/dl (32-36); Mean Corpuscular Hemoglobin 28.5 pg (26-34); Mean Corpuscular Volume 88.2 fl (80-100); Mean Platelet Volume 10.7 fl (7.4-10.4); Monocytes Absolute Auto 0.7 K/mm3 (0.1-0.6); Monocytes Percent Auto 9.2 % (2.6-8.5); Neutrophils Absolute Auto 5.3 K/mm3 (1.3-6.7); Platelet Count Result 240 k/mm3 (150-375); Red Blood Count 4.92 M/mm3 (4.6-6.20); Red Cell Distribution Width 16.5 % (11.5-14.5); White Blood Count 7.8 K/mm3 (4.5-10.0)
[2019-06-21 10:54] LABS: Lactic Acid 1.5 mmol/L (0.7-2.1)
[2019-06-21 11:14] LABS: Alanine Aminotransferase 19 U/L (4-50); Albumin Level 3.7 g/dL (3.5-5.1); Alkaline Phosphatase 208 U/L (38-126); Aspartate Amino Transferase 27 U/L (17-59); Bilirubin,Total 0.8 mg/dL (0.2-1.3); Blood Urea Nitrogen 17 mg/dL (9-20); Calcium 9.2 mg/dL (8.4-10.2); Carbon Dioxide 24 mmol/L (22-30); Chloride 106 mmol/L (98-107); Estimated CRCL calculation 70 ml/min; Estimated Glomerular Filt Rate > 60; Glucose 105 mg/dL (75-110); Magnesium 1.8 mg/dL (1.6-2.3); Potassium 4.6 mmol/L (3.4-5.0); Sodium 139 mmol/L (137-145)
--- NOTE | 2019-06-21 15:14 | PM.IMPN ---
Progress Note: A&P Assessment and Plan (1) Acute on chronic kidney failure: Code(s): N17.9 - Acute kidney failure, unspecified; N18.9 - Chronic kidney disease, unspecified Status: Acute Assessment and Plan: Patient has a history of CKD Stage 3. He had abnormal labs drawn at [facility] which prompted him to be evaluated in ER. Per chart review, it is reported that his creatinine was 3.3 on 06/19/2019. At presentation to facility his creatinine was 1.8, BUN 45, and GFR 38. Today creatinine is 0.9, BUN 17, and GFR >60. Patient was noted to have poor oral intake at [facility] and DONNIE is likely prerenal due to dehydration. Renal function has improved significantly. Patient was adequately rehydrated with IV fluids. IV fluids are now stopped as patient is euvolemic and renal function has improved. Continue to monitor kidney function Renally dose medications avoid nephrotoxic agents (2) CHF (congestive heart failure): Qualifiers: Heart failure type: combined systolic and diastolic Heart failure chronicity: chronic Qualified Code(s): I50.42 - Chronic combined systolic (congestive) and diastolic (congestive) heart failure Code(s): I50.9 - Heart failure, unspecified Status: Chronic Assessment and Plan: Patient has a documented history of CHF. Recent echo in April 2019 reveals combined systolic and diastolic dysfunction. EF was 33%. On exam, patient appears euvolemic, does not exhibit cough or other symptoms of fluid overload. Weight patient daily Continue metoprolol and lisinopril Resume home lasix 80 mg PO daily as DONNIE has resolved (3) Altered mental status: Qualifiers: Altered mental status type: unspecified Qualified Code(s): R41.82 - Altered mental status, unspecified Code(s): R41.82 - Altered mental status, unspecified Status: Acute Assessment and Plan: Patient previously alert and oriented x2 with nonsensical speech and agitation. I spoke with [facility] staff who believes his mental status is at baseline. Per chart review, patient has been exhibiting symptoms of dementia for some time. If any acute change has in fact occurred, this could be due to dehydration or possible urinary tract infection. Today his responses are more reasonable. He is able to tell me his name, the year, and the president. He can not tell me where we are, why he is in the hospital, or the date/month. CT brain has been ordered. Not performed initially given patients agitation but this has improved significantly and I believe he will tolerate scan. Hopeful discharge tomorrow pending results. Continue to monitor mental status. (4) Hyperkalemia: Code(s): E87.5 - Hyperkalemia Status: Acute Assessment and Plan: Labs drawn at [facility] reported to have potassium 5.2. At presentation to this facility, his potassium was 4.7 and he received his home medication of 20 mEq potassium. On 06/20/19, potassium was again elevated at 5.2. Repeat that evening was 4.9. Today potassium is stable at 4.6. Discontinue home potassium Continue to monitor potassium level (5) UTI (urinary tract infection): Code(s): N39.0 - Urinary tract infection, site not specified Status: Acute Assessment and Plan: Urinalysis suspicious for UTI with 1+ leuk esterase and 31-50 WBC. Urine culture reveals <10,000 of 3 organisms thought to be contaminants. Blood cultures with no growth to date. He is without leukocytosis and is afebrile. He has no CVA tenderness. Discontinue IM Rocephin. Rocephin was initiated on 06/19/2019 (6) Paroxysmal atrial fibrillation: Code(s): I48.0 - Paroxysmal atrial fibrillation Status: Chronic Assessment and Plan: Patient has documented history of AFib. EKG at presentation reveals AFib with RVR. Telemetry review reveals patient to be in AFib. Heart rate is stable. Continue to monitor telemetry C
--- NOTE | 2019-06-21 17:53 | PC.NURSE ---
patient requesting family be updated with current treatment plan. Son notified and updated plan to monitor for bleeding and watch the hemoglobin. All questions answered at this time.
[2019-06-21] MEDS: ALPRAZOLAM 0.25 MG TABLET PO (21:13)
[2019-06-22] VITALS: PULSE 67
[2019-06-22 04:00] VITALS: PULSE 75
[2019-06-22 06:00] VITALS: BP 137/74; PULSE 61; RESP 18; TEMP 36.7; O2SAT 99
[2019-06-22 06:36] LABS: Basophils Percent Auto 0.4 % (0.2-1.2); Eosinophils Absolute Auto 0.4 K/mm3 (0-0.3); Eosinophils Percent Auto 5.1 % (0-4.4); Hematocrit 40.6 % (42.0-52.0); Hemoglobin 13.4 g/dL (14.0-18.0); Immature Granulocyte Absolute 0.02 K/mm3 (0.00-0.031); Immature Granulocyte Percent A 0.3 % (0-0.5); Lymphocytes Percent Auto 23.3 % (18.3-44.2); Mean Corpuscular Hemoglobin 29.1 pg (26-34); Mean Corpuscular Volume 88.1 fl (80-100); Mean Platelet Volume 10.5 fl (7.4-10.4); Monocytes Absolute Auto 0.7 K/mm3 (0.1-0.6); Monocytes Percent Auto 10.6 % (2.6-8.5); Neutrophils Absolute Auto 4.2 K/mm3 (1.3-6.7); Neutrophils Percent Auto 60.3 % (45.5-73.1); Platelet Count Result 216 k/mm3 (150-375); Red Blood Count 4.61 M/mm3 (4.6-6.20); Red Cell Distribution Width 16.7 % (11.5-14.5); White Blood Count 6.9 K/mm3 (4.5-10.0)
[2019-06-22 06:55] LABS: Alanine Aminotransferase 16 U/L (4-50); Albumin Level 3.4 g/dL (3.5-5.1); Alkaline Phosphatase 181 U/L (38-126); Aspartate Amino Transferase 23 U/L (17-59); Bilirubin,Total 0.8 mg/dL (0.2-1.3); Blood Urea Nitrogen 17 mg/dL (9-20); Carbon Dioxide 28 mmol/L (22-30); Chloride 105 mmol/L (98-107); Estimated CRCL calculation 70 ml/min; Estimated Glomerular Filt Rate > 60; Glucose 91 mg/dL (75-110); Magnesium 1.8 mg/dL (1.6-2.3); Potassium 4.2 mmol/L (3.4-5.0); Sodium 138 mmol/L (137-145)
[2019-06-22 08:00] VITALS: PULSE 70
[2019-06-22] MEDS: ALPRAZOLAM 0.25 MG TABLET PO (08:25)
[2019-06-22] MEDS: PREGABALIN 50 MG CAPSULE PO ×2 (08:25→13:24)
[2019-06-22] MEDS: ATORVASTATIN 40 MG TABLET PO (08:26)
[2019-06-22] MEDS: METOPROLOL TARTRATE 50 MG TAB PO (08:26)
[2019-06-22] MEDS: GABAPENTIN 300 MG CAPSULE PO ×2 (08:26→13:25)
[2019-06-22] MEDS: ASPIRIN 81 MG ENTERIC TABLET PO (08:26)
[2019-06-22] MEDS: APIXABAN 5 MG TABLET PO (08:26)
[2019-06-22] MEDS: DULOXETINE HCL 30 MG CAPSULE.DR PO (08:26)
[2019-06-22] MEDS: FUROSEMIDE 80 MG TABLET PO (08:26)
[2019-06-22] MEDS: MULTIVITAMINS THERAPEUTIC TAB (*BKC) 1 TABLET PO (08:26)
[2019-06-22] MEDS: FAMOTIDINE 20 MG TABLET PO (08:26)
[2019-06-22] MEDS: MAGNESIUM OXIDE 400 MG TABLET PO (08:26)
[2019-06-22 10:55] LABS: Folic Acid 14.4 ng/mL (2.76->20)
[2019-06-22 12:00] VITALS: PULSE 66
--- NOTE | 2019-06-22 12:47 | PM.DS ---
DS: Diagnosis Admitting Diagnosis Admitting Diagnosis: Acute kidney failure, unspecified Discharge Diagnosis (1) Acute on chronic kidney failure: Code(s): N17.9 - Acute kidney failure, unspecified; N18.9 - Chronic kidney disease, unspecified Status: Acute Assessment and Plan: Improved. At time of discharge, Cr 0.9 and BUN 17. Likely prerenal due to dehydration. (2) CHF (congestive heart failure): Qualifiers: Heart failure type: combined systolic and diastolic Heart failure chronicity: chronic Qualified Code(s): I50.42 - Chronic combined systolic (congestive) and diastolic (congestive) heart failure Code(s): I50.9 - Heart failure, unspecified Status: Chronic Assessment and Plan: He will continue metoprolol and lasix. (3) Altered mental status: Qualifiers: Altered mental status type: unspecified Qualified Code(s): R41.82 - Altered mental status, unspecified Code(s): R41.82 - Altered mental status, unspecified Status: Acute Assessment and Plan: Mental status at baseline at time of discharge. Patient likely has chronic dementia. CT brain performed with no acute intracranial abnormalities with no evidence of hemorrhage or mass lesion. (4) Hyperkalemia: Code(s): E87.5 - Hyperkalemia Status: Acute Assessment and Plan: Noted to have elevated potassium at 5.2 at [facility]. At presentation, potassium was 4.7 and he was given his home dose of 20 mEq KCl. On repeat, potassium was 5.2. Home KCl was held and potassium stabilized. His home potassium will be held and he will repeat labs in one week with results to PCP. (5) UTI (urinary tract infection): Code(s): N39.0 - Urinary tract infection, site not specified Status: Acute Assessment and Plan: UA somewhat abnormal with 1+ leuk esterase and 31-50 WBC. Initiated on IM Rocephin as he did not tolerate IV. Urine culture revealed 3 organisms thought to be contaminants and he did not have urinary symptoms. He was afebrile and without leukocytosis. Blood cultures with NGTD. Rocephin was discontinued after 2 doses. (6) Paroxysmal atrial fibrillation: Code(s): I48.0 - Paroxysmal atrial fibrillation Status: Chronic Assessment and Plan: Monitored on telemetry. He will continue Eliquis. (7) Poor appetite: Code(s): R63.0 - Anorexia Status: Acute Assessment and Plan: Noted to have poor intake at [facility]. He had adequate oral intake during his stay and ate well. He was given Ensure with meals. DS: Summary Hospital Course Reason for hospitalization: Altered mental status Hospital Course: Date of admission: 06/19/2019 Date of discharge: 06/22/2019 Sonny Salas is a 69 year old male who resides at [facility] with a PMH significant for CHF, HTN, hisotry of CVA, and pAFib who presented to the emergency department on 06/19/2019 from [facility] due to concerns for abnormal labs. At [facility], he was noted to have creatinine level of 3.3 and potassium level of 5.2. At presentation, HR 79, BP 111/64, RR 21, T 98.0, 98% room air, WBC 7.0, Hgb 13.5, Hct 42.5, plt 278, Na 138, K 4.7, Cl 99, CO2 29, BUN 45, Cr 1.8, gluc 94, UA clear with 1+ leuk est and 31-50 WBC. He was admitted to the hospitalist service on 06/19/19 to manage his DONNIE and for rehydration. He was given IV fluid rehydration. Per documentation, patient was initially agitated and aggressive. He was pulling out IVs and refusing vitals and lab draws. He was given a 1x dose of Haldol. On my encounters, patient was pleasant and cooperative. He was alert and oriented x2, initially with off-topic and nonsensical speech. I spoke with nursing staff at [facility] who reported that he is at his baseline mental status. I also spoke with his who reinforced his baseline status. CT brain with no acute findings as noted above. On further encounters, he remai
[2019-06-22 14:00] VITALS: BP 120/82; PULSE 82; RESP 18; TEMP 36.3; O2SAT 99
== END 2019-06-22 17:40 ==
LOC: ANHED 12:58 → ANH3MEDSUR 14:48
PROVIDERS: Nurse Practitioner; Admitting Provider Internal Medicine; Emergency Provider Emergency Medicine; PCP Internal Medicine; Visit Provider Physician Assistant
DX: N17.9 Acute kidney failure, unspecified (principal); I13.0 Hypertensive heart and chronic kidney disease with heart failure and stage 1 through stage 4 chronic kidney disease, or unspecified chronic kidney disease; I50.42 Chronic combined systolic (congestive) and diastolic (congestive) heart failure; N18.3 Chronic kidney disease, stage 3 (moderate); R41.82 Altered mental status, unspecified; E86.0 Dehydration; E87.5 Hyperkalemia; R82.90 Unspecified abnormal findings in urine; I48.0 Paroxysmal atrial fibrillation; R63.0 Anorexia; K70.30 Alcoholic cirrhosis of liver without ascites; J44.9 Chronic obstructive pulmonary disease, unspecified; F32.9 Major depressive disorder, single episode, unspecified; M25.562 Pain in left knee; M25.561 Pain in right knee; G89.29 Other chronic pain; Z66 Do not resuscitate; Z79.01 Long term (current) use of anticoagulants; Z79.82 Long term (current) use of aspirin; Z79.899 Other long term (current) drug therapy; Z86.73 Personal history of transient ischemic attack (TIA), and cerebral infarction without residual deficits; Z87.440 Personal history of urinary (tract) infections; Z87.891 Personal history of nicotine dependence
CPT/HCPCS: 36415; 70450; 80053; 81001; 82607; 82746; 83605; 83735; 84100; 84132; 84443; 85025; 85610; 85730; 87040; 87086; 87088; 93005; 96372; 97162; 97165; 99285; A9270; G0378; J0696; J1630; J7030

== ENCOUNTER 2019-07-01 18:44 | Emergency (ER) | payer OTHER, SELFPAY ==
--- NOTE | ~2019-07-01 | CT_ITS ---
EXAMINATION: CT brain wo con INDICATION: Head injury, on blood thinners COMPARISON: None TECHNIQUE: Standard unenhanced head CT. The dose-length product (DLP) was 681.00 mGy-cm. The mA was a djusted according to patient size. Iterative reconstruction technique was employed. FINDINGS: There is no acute intraparenchymal hemorrhage. No evidence of mass lesion. No evidence of a cute infarction. A chronic left cerebellar lacunar infarct is noted. There is moderate periventricula r and subcortical hypodensity probably related to small vessel ischemic disease. There is moderate pr ominence of the sulci and ventricles related to cerebral atrophy. Intracranial calcified cerebral ath erosclerosis is noted. There are no extra-axial collections. There is no mass effect or midline shift . There is a right frontal scalp hematoma. The visualized sinuses and mastoid air cells are well aer ated. IMPRESSION: 1. Right frontal scalp hematoma without acute intracranial abnormality. 2. Age related findings. Reviewed, dictated and finalized at location A.
[2019-07-01 18:59] VITALS: BP 138/74; PULSE 86; RESP 18; TEMP 36.6; O2SAT 100
--- NOTE | 2019-07-01 19:19 | PC.NURSE ---
PT CARE ASSUMED BY GEOVANY GARY AFTER BEDSIDE REPORT.
--- NOTE | 2019-07-01 19:53 | ED.FALL ---
HPI - Fall General Chief Complaint: Fall Stated Complaint: Fall Time Seen by Provider: 07/01/19 19:04 History of Present Illness HPI Narrative: BIBEMS from [facility] after a fall from his wheel chair. He was noted to have a small laceration and swelling to the scalp. Oriented x1-2 at baseline, no change. He has no complaints and denies falling. History limited by dementia. Related Data Home Medications Medication Instructions Recorded Confirmed apixaban 5 mg tablet 5 mg PO BID 03/13/19 06/19/19 duloxetine 30 mg capsule,delayed 30 mg PO DAILY 03/13/19 06/19/19 release magnesium oxide 400 mg PO DAILY 03/13/19 06/19/19 potassium chloride 20 mEq 20 meq PO BID 03/13/19 06/19/19 tablet,extended release(part/cryst) gabapentin 300 mg PO TID 06/19/19 06/19/19 lisinopril 5 mg PO DAILY 06/19/19 06/19/19 multivitamin 1 tablet PO DAILY 06/19/19 06/19/19 pregabalin [Lyrica] 50 mg PO TID 06/19/19 06/19/19 Allergies Allergy/AdvReac Type Severity Reaction Status Date / Time No Known Allergies Allergy Verified 07/01/19 19:07 Review of Systems Review of Systems: ROS unobtainable: Yes unobtainable due to mental status PMFSH Past Medical History Medical History Anemia in other chronic diseases classified elsewhere Benign prostatic hyperplasia without lower urinary tract symptoms Carotid stenosis, bilateral CHF (congestive heart failure) CVD (cardiovascular disease) Five cardiac stents Essential (primary) hypertension History of multiple cerebrovascular accidents (CVAs) History of tobacco abuse Kidney stones Liver abscess Drained Overweight (08/21/15) Paroxysmal atrial fibrillation PVD (peripheral vascular disease) Surgical History Surgical History H/O carotid endarterectomy H/O cataract extraction H/O heart artery stent 5 stents History of appendectomy Hx of cholecystectomy Family History Family History Mother Family history of malignant neoplasm Patient's mother is Father Patient's father is Social History Social History Social History: Mr. Salas presented from [place] (discharged from to [place] 04/10/19). It is listed in the EMR that his , James, is appointed as his durable power commercial real estate attorney. He has no biological children but he is 2 to stepchildren. 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 He quit smoking in the . Prior to smoking he smoked about 2-3 packs of cigarettes a day for 30 years. His a long history of alcohol abuse but quit drinking alcohol in 2014. Prior to quitting alcohol you drink a qt of vodka a day. DNR papers from the shelter accompany the patient on admission. Smoking packs per day: 3 Smoking cigarettes per day: 60.0 Years smoked: 30 Smoking pack-years: 90.00 Smoking status: Unknown if ever smoked Tobacco type: cigarettes Second hand tobacco smoke exposure: Yes Alcohol intake: former Substance use: never Substance use type: does not use Gender identity (if verbalized by the patient): Male Spiritual care concerns: No Agree to blood products: Yes Exam Const: General: no acute distress and alert Nutritional Appearance: well nourished HENMT: Other: 3 cm superfical laceration to anteriro scalp. Bleeding controlled. Eyes: Pupils: Equal, round and reactive pupils present Resp: Effort & Inspection: normal respiratory effort Auscultation: clear to auscultation bilaterally Cardio: Rate: regular rate Rhythm: regular rhythm Skin: General skin exam: pallor Neuro: General: patient oriented x3 and moves all extremities Course Vital Signs Vital signs: Vital Signs Temperature 36.6 C 07/01/19 18:59 Pulse Rate 86 07/01/19 18:59 Respiratory Rate 18
[2019-07-01 20:28] LABS: Basophils Percent Auto 0.2 % (0.2-1.2); Eosinophils Absolute Auto 0.4 K/mm3 (0-0.3); Eosinophils Percent Auto 4.2 % (0-4.4); Hematocrit 39.6 % (42.0-52.0); Hemoglobin 12.5 g/dL (14.0-18.0); Immature Granulocyte Absolute 0.04 K/mm3 (0.00-0.031); Immature Granulocyte Percent A 0.4 % (0-0.5); Lymphocytes Percent Auto 13.4 % (18.3-44.2); Mean Corpuscular HGB Conc 31.6 g/dl (32-36); Mean Corpuscular Hemoglobin 28.5 pg (26-34); Mean Corpuscular Volume 90.2 fl (80-100); Monocytes Absolute Auto 0.9 K/mm3 (0.1-0.6); Monocytes Percent Auto 9.5 % (2.6-8.5); Neutrophils Absolute Auto 6.5 K/mm3 (1.3-6.7); Neutrophils Percent Auto 72.3 % (45.5-73.1); Platelet Count Result 263 k/mm3 (150-375); Red Blood Count 4.39 M/mm3 (4.6-6.20); Red Cell Distribution Width 16.5 % (11.5-14.5)
[2019-07-01 20:33] VITALS: BP 129/57; PULSE 84; RESP 21; TEMP 36.2; O2SAT 99
[2019-07-01 20:41] LABS: Prothrombin Time 21.8 Seconds (11.1-14.7)
[2019-07-01 20:42] LABS: Partial Thromboplastin Time 49.2 SECONDS (22.3-36.8)
[2019-07-01 20:44] LABS: Blood Urea Nitrogen 37 mg/dL (9-20); Calcium 9.5 mg/dL (8.4-10.2); Carbon Dioxide 32 mmol/L (22-30); Chloride 99 mmol/L (98-107); Estimated CRCL calculation 42 ml/min; Estimated Glomerular Filt Rate 46; Glucose 97 mg/dL (75-110); Potassium 3.7 mmol/L (3.4-5.0); Sodium 137 mmol/L (137-145)
[2019-07-01 22:13] VITALS: BP 104/80; PULSE 94; RESP 20; TEMP 36.9; O2SAT 97
--- NOTE | 2019-07-01 23:53 | PC.NURSE ---
Pt confused and pulling at clothing. Pulled out IV site. Dressing applied. Pt currently waiting on transport back to care home. Report given to Andrey ARMENTA
--- NOTE | 2019-07-02 00:21 | PC.NURSE ---
Addendum entered by Mellisa Smith 07/02/19 03:02: Called [facility] for ETA...en route, approximately 25 minutes ([id number]) Addendum entered by Mellisa Smith 07/02/19 00:24: Called [facility] also...declined. Original Note: Called [facility] to transport patient back to [facility] [place]...ETA [id number]. Also called [facility]...declined.
[2019-07-02 03:38] VITALS: BP 131/86; PULSE 84; RESP 19; TEMP 36.6; O2SAT 100
== END 2019-07-02 03:39 ==
PROVIDERS: Emergency Provider Emergency Medicine; PCP Internal Medicine
DX: S01.01XA Laceration without foreign body of scalp, initial encounter (principal); D64.9 Anemia, unspecified; N40.0 Benign prostatic hyperplasia without lower urinary tract symptoms; I50.9 Heart failure, unspecified; I25.10 Atherosclerotic heart disease of native coronary artery without angina pectoris; Z95.5 Presence of coronary angioplasty implant and graft; I11.0 Hypertensive heart disease with heart failure; Z86.73 Personal history of transient ischemic attack (TIA), and cerebral infarction without residual deficits; Z87.442 Personal history of urinary calculi; I48.0 Paroxysmal atrial fibrillation; Z79.01 Long term (current) use of anticoagulants; I73.9 Peripheral vascular disease, unspecified; Z98.49 Cataract extraction status, unspecified eye; Z87.891 Personal history of nicotine dependence; Z66 Do not resuscitate; W05.0XXA Fall from non-moving wheelchair, initial encounter
CPT/HCPCS: 36415; 70450; 80048; 85025; 85610; 85730; 99284

== ENCOUNTER 2019-08-06 12:22 | Observation (INO) | payer OTHER, SELFPAY ==
[2019-08-06] VITALS (15 sets, daily range): BP systolic 84–109; BP diastolic 38–92; PULSE 85–125; RESP 11–18; TEMP 36.1–36.8; O2SAT 90–100; BMI 26.6
--- NOTE | ~2019-08-06 | CT_ITS ---
EXAMINATION: CT brain wo con INDICATION: Altered mental status, confusion COMPARISON: 07/01/2019 TECHNIQUE: Standard unenhanced head CT. The dose-length product (DLP) was 681.00 mGy-cm. The mA was a djusted according to patient size. Iterative reconstruction technique was employed. FINDINGS: There is no acute intraparenchymal hemorrhage. No evidence of mass lesion. No evidence of a cute infarction. A chronic left cerebellar lacunar infarct is again noted. There is moderate perivent ricular and subcortical hypodensity probably related to small vessel ischemic disease. There is moder ate prominence of the sulci and ventricles related to cerebral atrophy. Intracranial calcified cerebr al atherosclerosis is noted. There are no extra-axial collections. There is no mass effect or midline shift. The orbits and soft tissues are unremarkable. The visualized sinuses and mastoid air cells a re well aerated. IMPRESSION: 1. No acute intracranial abnormality. 2. Age related findings. Reviewed, dictated and finalized at location A.
--- NOTE | ~2019-08-06 | XR_ITS ---
EXAMINATION: XR chest 1V portable DATE: 08/06/2019 13:19 INDICATION: Altered mental status TECHNIQUE: frontal view of the chest was obtained. COMPARISON: Chest radiograph dated 05/02/2019 FINDINGS: Lung volumes appear decreased which may be due to lordotic positioning. Left basilar opacities which could represent atelectasis and/or pneumonia. No pulmonary edema, pleural effusion or pneumothorax. C ardiomegaly with likely coronary artery stenting. The cardiomediastinal silhouette is normal. IMPRESSION: 1. Left basilar opacities which could represent atelectasis and/or pneumonia. 2. Cardiomegaly. Reviewed, dictated and finalized at location A.
--- NOTE | 2019-08-06 12:32 | ECG_ITS ---
Measurements Intervals [place] Rate: 98 P: MT: 0 QRS: -23 QRSD: 113 T: 74 QT: 386 QTc: 493 Interpretive Statements ATRIAL FIBRILLATION INTRAVENTRICULAR CONDUCTION DELAY INFERIOR INFARCT, AGE INDETERMINATE BORDERLINE ST-T WAVE ABNORMALITY- HIGH LATERAL LEADS BASELINE ARTIFACT- I, II, III, AVF ABNORMAL ECG Electronically Signed On 08-06-2019 13:30:44 CDT by Madhav Lanier D.O.
[2019-08-06] MEDS: SODIUM CHLORIDE 0.9% IV 2,400 ML/1,000 ML BAG 999 ML IV CONT ×3 (13:12→15:01)
--- NOTE | 2019-08-06 13:25 | PC.NURSE ---
IV speacialist to come draw blood. due to inability by staff
[2019-08-06 13:26] LABS: Add Urine Microscopic? YES; Appearance Urine Cloudy (Clear); Bacteria Urine Trace /hpf; Bilirubin Urine Negative (Negative); Blood Urine 3+ (Negative); Color Urine Red (Yellow); Glucose Urine UA Negative (Negative); Ketones Urine Trace mg/dL (Negative); Leukocyte Esterase Ur 3+ LEU/UL (Negative); Mucus Urine Rare /lpf; Nitrate Urine Negative (Negative); Protein Urine 2+ mg/dL (Negative); Specific Grav Ur 1.013 (1.001-1.035); Urobilinogen Urine Negative mg/dL (<2.0); WBC Urine 0-3 /hpf
[2019-08-06 14:03] LABS: Basophils Absolute Auto 0.1 K/mm3 (0.0-0.1); Basophils Percent Auto 0.4 % (0.2-1.2); Eosinophils Absolute Auto 0.1 K/mm3 (0-0.3); Hematocrit 38.2 % (42.0-52.0); Hemoglobin 12.1 g/dL (14.0-18.0); Immature Granulocyte Absolute 0.15 K/mm3 (0.00-0.031); Immature Granulocyte Percent A 1.1 % (0-0.5); Lymphocytes Absolute Auto 2.05 K/mm3 (0.9-3.2); Lymphocytes Percent Auto 14.7 % (18.3-44.2); Mean Corpuscular HGB Conc 31.7 g/dl (32-36); Mean Corpuscular Hemoglobin 28.1 pg (26-34); Mean Corpuscular Volume 88.8 fl (80-100); Mean Platelet Volume 10.7 fl (7.4-10.4); Monocytes Absolute Auto 1.4 K/mm3 (0.1-0.6); Monocytes Percent Auto 9.9 % (2.6-8.5); Neutrophils Absolute Auto 10.1 K/mm3 (1.3-6.7); Neutrophils Percent Auto 72.9 % (45.5-73.1); Platelet Count Result 365 k/mm3 (150-375); White Blood Count 13.9 K/mm3 (4.5-10.0)
[2019-08-06 14:18] LABS: Alanine Aminotransferase 18 U/L (4-50); Albumin Level 3.3 g/dL (3.5-5.1); Alkaline Phosphatase 161 U/L (38-126); Aspartate Amino Transferase 35 U/L (17-59); Bilirubin,Total 0.8 mg/dL (0.2-1.3); Blood Urea Nitrogen 90 mg/dL (9-20); Calcium 8.8 mg/dL (8.4-10.2); Carbon Dioxide 22 mmol/L (22-30); Chloride 98 mmol/L (98-107); Estimated CRCL calculation 10 ml/min; Estimated Glomerular Filt Rate 9; Glucose 97 mg/dL (75-110); Potassium 4.7 mmol/L (3.4-5.0); Sodium 134 mmol/L (137-145)
[2019-08-06 14:19] LABS: Lactic Acid Reflex 1.7 mmol/L (0.7-2.1)
[2019-08-06 14:37] LABS: CRP 14.2 mg/dL (<1.0)
--- NOTE | 2019-08-06 14:50 | ED.AMS ---
HPI - Altered Mental Status General Chief Complaint: Altered Mental Status Stated Complaint: AMS,LETHARGY Time Seen by Provider: 08/06/19 12:45 History of Present Illness HPI narrative: Patient is a 69-year-old who presents the ER from a jail with altered mental status. Patient is able to tell me she is and that he is in [place] alive but cannot give any additional history. He does not seem to complain of any pain. It appears patient is typically alert and oriented x2 from chart review. He also has had acute renal failure in the past. Unknown if patient's had any recent infections. Related Data Home Medications Medication Instructions Recorded Confirmed apixaban 5 mg tablet 5 mg PO BID 03/13/19 08/06/19 duloxetine 30 mg capsule,delayed 30 mg PO DAILY 03/13/19 08/06/19 release magnesium oxide 400 mg PO DAILY 03/13/19 08/06/19 lisinopril 5 mg PO DAILY 06/19/19 08/06/19 multivitamin 1 tablet PO DAILY 06/19/19 08/06/19 gabapentin 300 mg PO TID 08/06/19 08/06/19 Allergies Allergy/AdvReac Type Severity Reaction Status Date / Time No Known Allergies Allergy Verified 08/06/19 12:56 Review of Systems Review of Systems: ROS unobtainable: Yes unobtainable due to mental status [facility] Social History Social History Social History: Mr. Salas presented from [place] (discharged from to [place] 04/10/19). It is listed in the EMR that his , James, is appointed as his durable power attorney at law. He has no biological children but he is 2 to stepchildren. 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 He quit smoking in the . Prior to smoking he smoked about 2-3 packs of cigarettes a day for 30 years. His a long history of alcohol abuse but quit drinking alcohol in 2014. Prior to quitting alcohol you drink a qt of vodka a day. DNR papers from the jail accompany the patient on admission. Smoking packs per day: 3 Smoking cigarettes per day: 60.0 Years smoked: 30 Smoking pack-years: 90.00 Smoking status: Former smoker Tobacco type: cigarettes Alcohol intake: former Substance use: never Substance use type: does not use Gender identity (if verbalized by the patient): Male Spiritual care concerns: No Agree to blood products: Yes Exam Narrative: Exam Narrative: GENERAL: ill-appearing, well-nourished, and very slow to respond to questions.. HEAD: Normocephalic, atraumatic. ENT: Dry mucous membranes CHEST: Clear to auscultation. No respiratory distress. HEART: Irregular regular rate and rhythm. Normal peripheral pulses. ABDOMEN: Soft, nontender, nondistended. EXTREMITIES: Normal range of motion. No edema. SKIN: Warm, dry, no rash. NEURO: Alert and oriented x2. Course Course Emergency Course: Admit to hospital service for hydration. Blood pressure responding well to fluid. Chest x-ray concerning for early developing pneumonia given high white blood cell count low blood pressure. Reevaluation(s) Reevaluation #1: Patient's blood pressures are trending downwards. We will give an additional fluid bolus before starting his maintenance rate. I have contacted the patient's James and discussed patient's downward trending blood pressures. Patient is on a blood thinner and is combative when stimulated. I discussed with patient's whether a central line be a procedure that is desired given the fact that he is DNR, on a blood thinner, and combative. This is not a procedure that she wishes to have performed. She is aware that the patient is very sick and that this is a life-threatening issue. She would like to continue to be updated by the nursing staff during the course of the patient's stay as she herself has COPD and cannot come up to the hospital to visit the patient because she is concerned she may get sick. Date: 08/06/19 Time: 16:48 Vital Signs Vital signs: Vital Signs Temperature 98.2 F 08/06/19 12:25 Pulse Rate 103 H
--- NOTE | 2019-08-06 15:17 | PC.NURSE ---
tech checked patient for incontience. reports depends is dry
[2019-08-06] MEDS: SODIUM CHLORIDE 0.9% IV 1,000 ML 250 ML IV CONT (16:29)
--- NOTE | 2019-08-06 16:30 | PC.NURSE ---
verbal order from dr adamson to bolus 500ml of ns and then start patient at 100ml/hr
--- NOTE | 2019-08-06 17:10 | ADMGEN ---
This patient, Sonny Salas, was admitted to Medical Room 342-01. Patient/family oriented to hospital policies and general routines including ID bracelet, bed and alarms, visiting hours, pain management, procedures, bathroom and other care routines, personal items, smoking policy, room service/diet, and visiting hours. Valuables list has been completed. Information on how to activate the Rapid Response Team has been discussed. Patient/Family are encouraged to report perceived risks to care and to ask questions if they do not understand what they are told or what they should do.
[2019-08-06] MEDS: METOPROLOL TARTRATE INJ 5 MG/5 ML VIAL 2.5 MG IV PUSH (18:22)
[2019-08-06] MEDS: SODIUM CHLORIDE 0.9% IV 1,000 ML 100 ML IV CONT (18:25)
--- NOTE | 2019-08-06 18:26 | PC.NURSE ---
Limited history obtained d/t patients decreased LOC and confusion. Obtained history through transfer forms received from [place]. Called to [facility] to obtain more history information and the nurse taking care of him could not find his chart. She stated she would locate chart and fax over patient's history. Patient HR when received from ED was tachycardic afib, in 120's/130's, periodically in the 110's. Spoke with FEROZ Mcconnell who stated she would order 2.5mg IVP Metoprolol. Will continue to monitor patient.
[2019-08-06] MEDS: TOLNAFTATE 1% POWDER 45 GM BTL 1 APPLIC TOPICAL (21:08)
--- NOTE | 2019-08-06 22:25 | PM.IMHP ---
H&P: HPI History of Present Illness Chief complaint: Altered mental status Narrative: Date and time of patient contact: 08/06/2019 at 10:00 p.m. Sonny Saals is a 69 year old male with a past medical history of atrial fibrillation, hypertension and dementia who presented to the ER from via EMS due to increased confusion and lethargy. Source of information is past medical records and ER records. The patient is unable to provide any history and is nonverbal at this time. In the ER the patient evidently could tell the ER staff that he was in [place]. According to the detention report the patient is usually alert oriented x2. There is no mention of fevers in the ER or EMS paperwork. Patient was afebrile on arrival to the ER. A chronic history of atrial fibrillation but has been intermittently tachycardic with heart rates up to the 120s. His blood pressures have been soft with systolic blood pressures of 96 admission. The patient appears to be clinically dry. Review of Systems Review of Systems: ROS unobtainable: Yes unobtainable due to medical condition (Dementia) and unobtainable due to mental status [facility] Past Medical History Medical History (Updated 08/06/19 @ 23:50 by Kiah Glover DO) Alcoholic cirrhosis of liver Anemia in other chronic diseases classified elsewhere BPH (benign prostatic hyperplasia) Carotid stenosis, bilateral CHF (congestive heart failure) Echocardiogram April 2019 demonstrated severe left ventricular enlargement 7.5 cm, severe global hypokinesis with akinesis of the apex, apical septal and inferior septal apical wall, grade 2 diastolic dysfunction, EF 25-30%, mild right ventricular enlargement, severe left atrial enlargement, mild right atrial enlargement, mild mitral valve regurgitation, mild pulmonary hypertension with RVSP of 42 Chronic alcoholism in remission CVD (cardiovascular disease) 5 stents placed in 2001 Dementia Essential (primary) hypertension History of multiple cerebrovascular accidents (CVAs) History of tobacco abuse Ischemic cardiomyopathy Kidney stones Liver abscess Drained Paroxysmal atrial fibrillation Peripheral artery disease With mild occlusive disease of the right lower limb noted on ABIs December 2018 Peripheral neuropathy Surgical History Surgical History (Updated 08/06/19 @ 23:31 by Kiah Glover DO) H/O carotid endarterectomy Right carotid endarterectomy with residual nonocclusive carotid stenosis bilaterally noted on carotid Dopplers in July 2017 H/O cataract extraction H/O heart artery stent 5 stents History of appendectomy Hx of cholecystectomy Family History Family History (Updated 08/06/19 @ 23:38 by Kiah Glover DO) Mother Cancer Father Acute myocardial infarction Heart disease CHF (congestive heart failure) Social History Social History (Updated 08/06/19 @ 23:56 by Kiah Glover DO) Social History: He has no biological children but he has 2 to stepchildren. Code status: DNR papers from the detention accompany the patient on admission. Durable power of attorney law clerk: James Smoking packs per day: 3 Smoking cigarettes per day: 60.0 Years smoked: 30 Smoking pack-years: 90.00 Smoking status: Former smoker Tobacco type: cigarettes Additional smoking assessment comments: He smoked 2-3 packs per day for 30 years. Alcohol intake: former Alcohol use details: He used to drink a quart of vodka a day but quit drinking in 2014. Substance use: never Substance use type: does not use Living arrangements: detention Additional living arrangements comments: Was placed in [facility] after his hospitalization in April of 2019. 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
[2019-08-06] MEDS: SODIUM CHLORIDE 0.9% IV 500 ML IV CONT (22:27)
[2019-08-07] VITALS: PULSE 108
[2019-08-07] MEDS: SODIUM CHLORIDE 0.9% IV 1,000 ML 125 ML IV CONT ×2 (02:28→10:47)
[2019-08-07 04:00] VITALS: PULSE 95
[2019-08-07 04:35] VITALS: BP 80/38; PULSE 87; RESP 14; TEMP 36.3; O2SAT 90
[2019-08-07 06:22] LABS: Hematocrit 33.8 % (42.0-52.0); Hemoglobin 10.9 g/dL (14.0-18.0); Mean Corpuscular HGB Conc 32.2 g/dl (32-36); Mean Corpuscular Hemoglobin 28.8 pg (26-34); Mean Corpuscular Volume 89.2 fl (80-100); Mean Platelet Volume 10.4 fl (7.4-10.4); Platelet Count Result 256 k/mm3 (150-375); Red Blood Count 3.79 M/mm3 (4.6-6.20); Red Cell Distribution Width 16.3 % (11.5-14.5); White Blood Count 19.7 K/mm3 (4.5-10.0)
[2019-08-07 06:41] LABS: Blood Urea Nitrogen 73 mg/dL (9-20); Carbon Dioxide 16 mmol/L (22-30); Chloride 110 mmol/L (98-107); Estimated CRCL calculation 17 ml/min; Estimated Glomerular Filt Rate 17; Glucose 92 mg/dL (75-110); Potassium 4.1 mmol/L (3.4-5.0); Sodium 135 mmol/L (137-145)
[2019-08-07 08:00] VITALS: BP 92/70; PULSE 105; PULSE 121; RESP 16; TEMP 36.2; O2SAT 89
--- NOTE | 2019-08-07 08:05 | PM.IMPN ---
Progress Note: A&P Assessment and Plan (1) Pneumonia: Code(s): J18.9 - Pneumonia, unspecified organism Status: Acute Assessment and Plan: Chest x-ray consistent with atelectasis versus pneumonia. Patient has worsened leukocytosis. Technically septic on arrival with hypotension, leukocytosis, tachycardia. He has been placed on empiric antibiotic therapy with Rocephin and azithromycin from the ER. After long discussion, has decided no aggressive intervention at this time and would like to speak with CC about Hospice/comfort care services. She wishes to continue treatment for now until a decision has been met. Continue empiric antibiotic therapy with Rocephin and azithromycin until decision met with hospice/comfort care CC consult placed for hospice; likely candidate for inpatient given his clinical condition Await further instructions from hospice Continue IVF for now (2) Sepsis: Code(s): A41.9 - Sepsis, unspecified organism Status: Acute Assessment and Plan: Please see above a/p. (3) Acute kidney injury: Code(s): N17.9 - Acute kidney failure, unspecified Status: Acute Assessment and Plan: Likely due to dehydration and nephrotoxic medication use with lisinopril and Lasix use. Cr improved to 3.60 this morning. Continue with normal saline rate at 100 mL/hr Monitor (4) Abnormal urinalysis: Code(s): R82.90 - Unspecified abnormal findings in urine Status: Acute Assessment and Plan: The patient's UA does demonstrate red cloudy urine with trace bacteria 3+ leukocyte esterase. Patient is on empiric antibiotic therapy with Rocephin from ER Continue empiric therapy of Rocpehin Await cultures (5) Altered mental status: Qualifiers: Altered mental status type: unspecified Qualified Code(s): R41.82 - Altered mental status, unspecified Code(s): R41.82 - Altered mental status, unspecified Status: Acute Assessment and Plan: Multifactorial due to metabolic and toxic encephalopathy from uremia and multiple sedative medication. The patient's Neurontin, oxycodone and Lyrica have been held. CT scan of brain demonstrated no acute process. Monitor Patient still A&O only to self Subjective Date/time seen: 08/07/19 08:05 Interval history: Patient is a 69 yo M with history of atrial fibrillation, hypertension and dementia among several other comorbid conditions who is here for AMS likely secondary to sepsis with PNA vs UTI as source and DONNIE 2/2 dehydration. Patient is lethargic in bed arousable to verbal stimuli; oriented to himself only. Does not answer ROS. is at bedside. Received call from nursing stating would like to speak with me about comfort care. Discussed in detail about patient's overall condition, his wishes to be DNR/DNI and details behind hospice services. After long discussion, stated I just want him to be comfortable . Hospice services were offered and she stated she would like to speak with CC about the different services. We agreed to keep current treatment plan as such until hospice was officially decided. Review of Systems Review of Systems: ROS unobtainable: Yes unobtainable due to medical condition (Dementia) and unobtainable due to mental status Exam Narrative: Exam Narrative: Patient lying supine in bed at time of visit Const: General: comfortable, no acute distress, well developed and ill appearing acutely and chronically Orientation/consciousness: oriented to person Limitations: altered mental status (does not answer ROS. Able to follow some commands) HENMT: Head: normocephalic and atraumatic General nose exam: Normal nares present Face and sinus: face symmetric Mouth: Yes dry mucous membranes Ey
[2019-08-07] MEDS: TOLNAFTATE 1% POWDER 45 GM BTL 1 APPLIC TOPICAL (08:06)
[2019-08-07] MEDS: MORPHINE SULFATE 2 MG/ML INJ IV PUSH (10:48)
--- NOTE | 2019-08-07 11:39 | PM.DS ---
DS: Admitting Diagnosis Admitting Diagnosis Admitting Diagnosis: Pneumonia, unspecified organism DS: Discharge Diagnosis Discharge Diagnosis (1) Pneumonia: Code(s): J18.9 - Pneumonia, unspecified organism Status: Acute Assessment and Plan: Chest x-ray consistent with atelectasis versus pneumonia. Patient has worsened leukocytosis. Technically septic on arrival with hypotension, leukocytosis, tachycardia. He has been placed on empiric antibiotic therapy with Rocephin and azithromycin from the ER. After long discussion, has decided no aggressive intervention at this time and would like to speak with CC about Hospice/comfort care services. She wishes to continue treatment for now until a decision has been met. Continue empiric antibiotic therapy with Rocephin and azithromycin until decision met with hospice/comfort care CC consult placed for hospice; likely candidate for inpatient given his clinical condition Await further instructions from hospice Continue IVF for now Update per CC, patient/ met with [facility] hospice and consents signed for hospice care. Patient appropriate for care at [place] per CC. Will discharge patient today. (2) Sepsis: Code(s): A41.9 - Sepsis, unspecified organism Status: Acute Assessment and Plan: Please see above a/p. (3) Acute kidney injury: Code(s): N17.9 - Acute kidney failure, unspecified Status: Acute Assessment and Plan: Likely due to dehydration and nephrotoxic medication use with lisinopril and Lasix use. Cr improved to 3.60 this morning. Continue with normal saline rate at 100 mL/hr Monitor (4) Abnormal urinalysis: Code(s): R82.90 - Unspecified abnormal findings in urine Status: Acute Assessment and Plan: The patient's UA does demonstrate red cloudy urine with trace bacteria 3+ leukocyte esterase. Patient is on empiric antibiotic therapy with Rocephin from ER Continue empiric therapy of Rocpehin Await cultures (5) Altered mental status: Qualifiers: Altered mental status type: unspecified Qualified Code(s): R41.82 - Altered mental status, unspecified Code(s): R41.82 - Altered mental status, unspecified Status: Acute Assessment and Plan: Multifactorial due to metabolic and toxic encephalopathy from uremia and multiple sedative medication. The patient's Neurontin, oxycodone and Lyrica have been held. CT scan of brain demonstrated no acute process. Monitor Patient still A&O only to self DS: Summary Hospital Course Reason for hospitalization: AMS, PNA/sepsis, DONNIE, Hospital Course: Patient is a 69 yo M with a history of atrial fibrillation, hypertension and dementia who presented to the ER from via EMS due to increased confusion and lethargy. While in the ED, patient had a CXR consistent with pneumonia with leukocytosis and technically septic with hypotension, leukocytosis, and tachycardia; DONNIE also noted on labs, as well as concern for UTI. Discussion in ED occurred between ED physician and /POA of the patient; did not want aggressive treatment for the patient such as a central line and pressors and it was subsequently decided patient would be treated with IVF fluids and empiric antibiotics. Patient admitted under this setting. Please see H&P for further details. Presenting VS: Temp Pulse Resp Pulse Ox BP 98.2 F 103 H 13 93 RA 90/54 08/06/19 12:25 08/06/19 12:25 08/06/19 12:25 08/06/19 12:25 08/06/19 12:45 Presenting Pertinent labs: WBC 13.9k, Na 134, BUN 90, Cr 6.40, CRP 14.2, Lactic acid 1.7. UA shows red/cloudy urine, 2+ protein, 3+ blood, 3+ leuk est, trace bacteria. CBC, chemistry, UA otherwise unremakrable Micro: UCx growing proteus mirabilis. 1st BCx growing
[2019-08-07 12:54] VITALS: PULSE 113; O2SAT 95
== END 2019-08-07 14:01 | disposition hospice, home (50) ==
LOC: ANHED 15:03 → ANH3MED 16:04
PROVIDERS: Internal Medicine; Admitting Provider Family Medicine; Emergency Provider Emergency Medicine; PCP Family Medicine; Visit Provider Internal Medicine
DX: J18.9 Pneumonia, unspecified organism (principal); A41.9 Sepsis, unspecified organism; N17.9 Acute kidney failure, unspecified; R82.90 Unspecified abnormal findings in urine; R41.82 Altered mental status, unspecified; I11.0 Hypertensive heart disease with heart failure; I50.9 Heart failure, unspecified; I25.5 Ischemic cardiomyopathy; I25.10 Atherosclerotic heart disease of native coronary artery without angina pectoris; F10.21 Alcohol dependence, in remission; K70.30 Alcoholic cirrhosis of liver without ascites; F03.90 Unspecified dementia, unspecified severity, without behavioral disturbance, psychotic disturbance, mood disturbance, and anxiety; I48.0 Paroxysmal atrial fibrillation; I73.9 Peripheral vascular disease, unspecified; G62.9 Polyneuropathy, unspecified; N40.0 Benign prostatic hyperplasia without lower urinary tract symptoms; Z86.73 Personal history of transient ischemic attack (TIA), and cerebral infarction without residual deficits; Z79.01 Long term (current) use of anticoagulants; Z66 Do not resuscitate; Z87.891 Personal history of nicotine dependence; Z95.5 Presence of coronary angioplasty implant and graft; Z79.82 Long term (current) use of aspirin
CPT/HCPCS: 36415; 51701; 70450; 71045; 80048; 80053; 81001; 83605; 85025; 85027; 86140; 87040; 87077; 87086; 87088; 87186; 93005; 96361; 96365; 96367; 96375; 96376; 99285; A9270; G0378; J0456; J0696; J2060; J2270; J7030; J7040